=== PATIENT | male | born 1965 | race Caucasian/White ===

== ENCOUNTER 2021-10-27 19:30 | Outpatient (CLI) | payer SELFPAY ==
[2021-10-27 20:05] LABS: D Dimer 0.96 ug/mIFEU (0-0.59)
== END 2021-10-27 19:31 | disposition home or self-care (01) ==
PROVIDERS: Family Provider Family Medicine; Visit Provider Nurse Practitioner
DX: Z01.89 Encounter for other specified special examinations (principal)
CPT/HCPCS: 85378

== ENCOUNTER 2021-10-28 18:39 | Emergency (ER) | payer OTHER, SELFPAY ==
--- NOTE | 2021-10-28 18:41 | ECG_ITS ---
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 Measurements Intervals [place] Rate: 77 P: 58 CO: 195 QRS: 90 QRSD: 105 T: 94 QT: 364 QTc: 414 Interpretive Statements SINUS RHYTHM POSSIBLE ANTERIOR MYOCARDIAL INFARCTION , OF INDETERMINATE AGE [30 ms Q WAVE IN V3/V4, OR R < 0.2 mV IN V4] No previous ECG available for comparison Electronically Signed On 10-28-2021 20:28:35 CDT by Josesito Ward M.D. [id number]
[2021-10-28 18:47] VITALS: BP 125/75; PULSE 73; RESP 14; TEMP 36.6; O2SAT 97; BMI 25.3
[2021-10-28 20:40] LABS: Basophils # 0.1 10^3/uL (0.0-0.1); Basophils % 0.9 %; Eosinophils # 0.2 10^3/uL (0.0-0.8); Eosinophils % 2.8 %; Hematocrit 47.3 % (42.0-52.0); Hemoglobin 15.6 g/dL (11.7-16.6); Lymphocytes # 3.3 10^3/uL (0.8-4.8); Mean Corpuscular Hemoglobin 32.1 pg (28.0-34.0); Mean Corpuscular Volume 97.3 fl (80-94); Monocytes # 0.7 10^3/uL (0.2-0.9); Monocytes % 9.7 %; Neutrophils # 2.63 10^3/uL (1.8-7.7); Neutrophils % 38.5 %; Nucleated Red Blood Cells % 0 %; Platelet Count 200 10^3/cmm (130-400); Red Blood Count 4.86 10^6/uL (4.1-5.3); Red Cell Distribution Width 12.6 % (12.1-15.1); White Blood Count 6.8 10^3/uL (4.0-10.0)
--- NOTE | 2021-10-28 20:41 | ECG_ITS ---
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 Measurements Intervals [place] Rate: 71 P: 43 AL: 214 QRS: 79 QRSD: 97 T: 90 QT: 384 QTc: 418 Interpretive Statements SINUS RHYTHM WITH FIRST DEGREE AV BLOCK POSSIBLE ANTERIOR MYOCARDIAL INFARCTION , PROBABLY OLD [30 ms Q WAVE IN V3/V4, OR R < 0.2 mV IN V4] Compared to ECG 10/28/2021 18:59:30 First degree AV block now present Myocardial infarct finding still present Electronically Signed On 10-28-2021 22:00:36 CDT by Josesito Ward M.D. [id number]
[2021-10-28 20:52] LABS: INR 0.93 (0.8-1.2)
--- NOTE | 2021-10-28 20:54 | CTR_ITS ---
PROCEDURE INFORMATION: Exam: CTA Chest With Contrast Exam date and time: 10/28/2021 9:09 PM Age: 56 years old Clinical indication: Pain and abnormal findings; Abnormal diagnostic tests; Elevated d-dimer; Chest pressure; Patient HX: C/O chest pain with elevated d dimer; Additional info: Cp TECHNIQUE: Imaging protocol: Computed tomographic angiography of the chest with contrast. 3D rendering (Not supervised by radiologist): MIP and/or 3D reconstructed images were created by the technologist. Radiation optimization: All CT scans at this facility use at least one of these dose optimization techniques: automated exposure control; mA and/or kV adjustment per patient size (includes targeted exams where dose is matched to clinical indication); or iterative reconstruction. Contrast material: OMNI 350; Contrast volume: 80 ml; Contrast route: INTRAVENOUS (IV); COMPARISON: CR XR chest 2V* [id number] 10/27/2021 5:45 PM RADIATION DOSE METRICS: Total DLP (mGy-cm): 596.78 FINDINGS: Pulmonary arteries: There is no evidence of filling defects within the pulmonary arterial circulation to suggest pulmonary embolism. Aorta: There is no thoracic aortic aneurysm or dissection. Lungs: 4 mm noncalcified nodule such as on series 7, image number 14 in the right middle lobe. There is also 3 mm noncalcified peripheral nodule image number 31 series 4 in the left upper lobe. For patients at low risk (minimal or absent history of smoking and of other known risk factors), no routine follow-up is indicated. For patients at high risk (history of smoking or of other known risk factors), consider optional CT Chest at 12 months. (Reference: Ranulfo). There is some mild mosaic attenuation posteriorly at the lung bases which could represent gas trapping from small airways disease. There is some mild peripheral ground-glass opacity in both lungs in a dependent distribution. This may represent some mild interstitial edema. Please correlate with clinical findings. Pleural spaces: There are no pleural effusions present. Heart: Unremarkable. No cardiomegaly. No pericardial effusion. Lymph nodes: There is no evidence of lymphadenopathy. Bones/joints: Unremarkable. No acute fracture. Soft tissues: Unremarkable. CT/CT angio chest PE protcl [id number] IMPRESSION: 1. No evidence of pulmonary embolism. 2. Small nonspecific pulmonary nodules. Follow-up according to Fleischner society guidelines is recommended. 3. Question of mild dependent interstitial edema. REFERENCES: Ranulfo H, et al. Guidelines for Management of Incidental Pulmonary Nodules Detected on CT Images: From the Fleischner Society 2017. Radiology. 2017;284(1):228-243.
--- NOTE | 2021-10-28 21:00 | W.ED.CHESTPA ---
HPI - Chest Pain General: Chief Complaint: Chest Pain Stated Complaint: abnormal labs, chest pain Time Seen by Provider: 10/28/21 20:39 Source: patient Mode of arrival: ambulatory Limitations: no limitations History of Present Illness: 56-year-old male who states he has been having chest pain over the last 3 nights. States that worst pains were 2 nights ago he had shortness of breath he had seen Bobo A[facility]as had a D-dimer drawn blood called him tell him that was elevated and he need to come to get a CT angio of his chest. He states his today's pains been improved he has had some intermittent pains denies any pain currently no history of heart disease. Denies any cough or fever. Associated symptoms: Reports dyspnea; Deny abdominal pain, fever(s), nausea or vomiting Review of Systems Const: Denies: fever(s), chills, body aches or change in appetite Eyes: Denies: blurry vision or eye discomfort ENMT: Denies: throat pain or dental pain Card: Reports: chest pain Resp: Reports: dyspnea GI: Denies: abdominal pain, nausea, vomiting or diarrhea : Denies: dysuria Musc: Denies: neck pain or back pain Skin/Breast: Denies: rash Neuro: Denies: headache(s) Psych: Denies: depression Robel/Lymph: Denies: easy bruising All/Imm: Denies: urticaria PFSH ED PFSH: Medical History (Updated 10/28/21 @ 23:36 by Conrad Oshea MD) Hypertension Social History (Updated 10/28/21 @ 21:02 by Conrad Oshea MD) Smoking and tobacco status: current every day smoker Physical Exam Const: COMMON NORMALS: no acute distress, patient oriented x3 and healthy appearing HENMT: COMMON NORMALS: normocephalic and atraumatic HEAD & SCALP: normocephalic and atraumatic Eye: COMMON NORMALS: Equal, round and reactive pupils present and EOMs intact bilaterally PUPIL: Yes Equal, round and reactive pupils present Neck/C-Spine: COMMON NORMALS: full ROM and supple Chest: COMMONS NORMALS: normal inspection of the chest and normal palpation of entire chest wall Resp: COMMON NORMALS: normal respiratory effort, No retractions, No use of accessory muscles and clear to auscultation bilaterally AUSCULTATION: clear to auscultation bilaterally Cardio: COMMON NORMALS: regular rate, regular rhythm and No murmurs present (Cardio) RATE: regular rate RHYTHM: regular rhythm GI: COMMON NORMALS: Normal to inspection, nondistended, normoactive bowel sounds present, Soft to palpation, non-tender and no masses PALPATION: Yes Soft to palpation Extremity: COMMON NORMALS: normal to inspection and full ROM Neuro: COMMON NORMALS: patient oriented x3, moves all extremities and no focal motor deficits Psych: COMMON NORMALS: mental status grossly normal, Normal thought process present and cooperative THOUGHT PROCESS: Normal thought process present Skin: COMMON NORMALS: no rashes or lesions noted and no wounds GENERAL SKIN EXAM: no rashes or lesions noted Course Vital Signs: Vital signs: Vital Signs Temperature 97.9 F 10/28/21 18:47 Pulse Rate 75 10/28/21 23:16 Respiratory Rate 16 10/28/21 23:16 Blood Pressure 111/72 10/28/21 23:16 Pulse Oximetry 95 10/28/21 23:16 MDM - Chest Pain Medical Decision Making Patient presents for chest pain he is mainly concerned with pulmonary embolism as his PCP had sent him here for CT angio. A CT under here was normal I did inform him that his story of his chest pain was concerning his first troponin was 7 5 the second 1 did go down. I did recommended admission to him with the type of pain he was having I informed him I was concerned it could be cardiac. He states that he does not want to stay in the hospital he did agreed for an outpatient stress test but he refused admission we will get him follow-up with cardiology and outpatient stress test he is to return to the ER if he has any worsening pain he understands and agrees to the plan. Lab Data : 10/28/21 20:24 10/28/21 20:24 Radiology Impressions Chest CTA 10/28/21 20:54 IMPRESSION: 1. No evidence of pulmonary embolism. 2. Small nonspecific pulmonary nodules. Follow-up according to Fleischner society guidelines is recommended. 3. Question of mild dependent interstitial edema. REFERENCES: Ranulfo Murphy et al. Guidelines for Management of Incidental Pulmonary Nodules Detected on CT Images: From the Fleischner Society 2017. Radiology. 2017;284(1):228-243. Laboratory Results WBC 6.8 10^3/uL (4.0-10.0) 10/28/21 20: RBC 4.86 10^6/uL (4.1-5.3) 10/28/21 20: Hgb 15.6 g/dL (11.7-16.6) 10/28/21 20: Hct 47.3 % (42.0-52.0) 10/28/21 20: MCV 97.3 fl (80-94) H 10/28/21 20: MCH 32.1 pg (28.0-34.0) 10/28/21: MCHC 33.0 g/dL (30.0-36.0) 10/28/21: RDW 12.6 % (12.1-15.1) 10/28/21: Plt Count 200 10^3/cmm (130-400) 10/28/21 20: MPV 11.0 fL (7.4-10.4) H 10/28/21: Neut % (Auto) 38.5 % 10/28/21: Lymph % (Auto) 48.0 % 10/28/21: [place] % (Auto) 9.7 % 10/28/21: Eos % (Auto) 2.8 % 10/28/21: Baso % (Auto) 0.9 % 10/28/21 Neut # (Auto) 2.63 10^3/uL (1.8-7.7) 10/28/21: Lymph # (Auto) 3.3 10^3/uL (0.8-4.8) 10/28/21: [place] # (Auto) 0.7 10^3/uL (0.2-0.9) 10/28/21: Eos # (Auto) 0.2 10^3/uL (0.0-0.8) 10/28/21: Baso # (Auto) 0.1 10^3/uL (0.0-0.1) 10/28/21: Nucleated RBC % (auto) 0 % 10/28/21: Nucleated RBCs # 0.0 /100WBC 10/28/21: PT 12.80 SECONDS (12.1-14.9) 10/28/21 20:24 INR 0.93 (0.8-1.2) 10/28/21 20:24 Sodium 139 mmol/L (136-145) 10/28/21 20:24 Potassium 4.3 mmol/L (3.5-5.1) 10/28/21 20:24 Chloride 103 mmol/L (98-107) 10/28/21 20:24 Carbon Dioxide 27 mmol/L (22-29) 10/28/21 20:24 Anion Gap 13.3 (5-19) 10/28/21 20:24 BUN 17 mg/dL (6-20) 10/28/21 20:24 Creatinine 1.1 mg/dL (0.7-1.2) 10/28/21 20:24 GFR Calculation 69.5 mL/min (90-130) L 10/28/21 20:24 Glucose 82 mg/dL (65-115) 10/28/21 20:24 Calculated Osmolality 289 mOsm/kg (285-295) 10/28/21 20:24 Calcium 10.0 mg/dL (8.5-10.5) 10/28/21 20:24 Total Bilirubin 0.2 mg/dL (0.15-1.2) 10/28/21 20:24 AST 17 U/L (0-40) 10/28/21 20:24 ALT 17 U/L (0-41) 10/28/21 20:24 Alkaline Phosphatase 78 IU/L (40-130) 10/28/21 20:24 Troponin T Baseline 75 ng/L (0-15) H 10/28/21 20:24 Troponin T 120 Minute 70.52 ng/L (0-15) H 10/28/21 22:42 Delta Troponin T -4.48 ABS# (0-10) L 10/28/21 22:42 Total Protein 7.2 g/dL (6.6-8.7) 10/28/21 20:24 Albumin 4.3 g/dL (3.5-5.2) 10/28/21 20:24 Globulin 2.9 g/dL (1.3-4.6) 10/28/21 20:24 EKG Data EKG 1: I personally reviewed and interpreted this EKG as follows: EKG interpretation date: 10/28/21 EKG interpretation time: 20:54 Interpretation: nasr hr [address] or t wave abnormalities qrs 97 qtc 406 Discharge Plan Discharge Patient Disposition: Home Clinical Impression: Chest pain Discharge Orders: Discharge ED (Routine); Ordered 10/28/21 Ordered By: Conrad Oshea Referrals: Earl Stephenson MD [Physician] - 1-3 days Discharge Diet: Advance as tolerated Discharge Activity: Resume usual activity Patient Instructions: Chest Pain (ED) Coding Level of Care Code 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
[2021-10-28 21:02] LABS: Alanine Aminotransferase 17 U/L (0-41); Albumin Level 4.3 g/dL (3.5-5.2); Alkaline Phosphatase 78 IU/L (40-130); Anion Gap 13.3 (5-19); Aspartate Amino Transferase 17 U/L (0-40); Blood Urea Nitrogen 17 mg/dL (6-20); Carbon Dioxide 27 mmol/L (22-29); Chloride 103 mmol/L (98-107); Globulin 2.9 g/dL (1.3-4.6); Glomerular Filtration Rate 69.5 mL/min (90-130); Glucose 82 mg/dL (65-115); Osmolality Calculated 289 mOsm/kg (285-295); Potassium 4.3 mmol/L (3.5-5.1); Sodium 139 mmol/L (136-145); Total Bilirubin 0.2 mg/dL (0.15-1.2); Total Protein 7.2 g/dL (6.6-8.7)
[2021-10-28 21:06] LABS: Troponin(5th) Baseline 75 ng/L (0-15)
[2021-10-28] MEDS: iohexol 350 mg/mL 100 mL Btl IV (21:16)
[2021-10-28 21:44] VITALS: BP 127/87; PULSE 71; RESP 16; O2SAT 98
[2021-10-28 22:26] VITALS: BP 128/78; PULSE 72; RESP 17; O2SAT 95
[2021-10-28 23:16] VITALS: BP 111/72; PULSE 75; RESP 16; O2SAT 95
[2021-10-28 23:16] LABS: Troponin 5 2HR 70.52 ng/L (0-15)
[2021-10-28 23:26] LABS: Troponin 5 2HR Delta -4.48 ABS# (0-10)
--- NOTE | 2021-10-28 23:49 | PC.NURSE ---
As patient was leaving he states that he did not get the answer he wanted. Pt. was offered admission by physician and refused. Pt. asked for medical record information , I explained that he could get his medical records from the medical record office.
--- NOTE | 2021-10-30 13:44 | DCPLANNER ---
Addendum entered by Graciela Schneider 11/10/21 10:25: Patient had a follow up appointment scheduled with [facility] - patient did attend appointment. Addendum entered by Graciela Schneider 11/02/21 15:03: ER physician wanted an outpatient stress test order for patient. Patient came back to the ER and was admitted and had a heart cath completed. funeral location manager called [facility], spoke with Page Trent a note was put on patients chart stating that ER physician wanted a stress test ordered prior to cath. Addendum entered by Graciela Schneider 11/02/21 14:57: Patient has a follow up appointment scheduled for Thursday November 04, 2021 at 11:00 with INSTRUCTOR ADJUNCT PHARMACY TECHNICIANMay at [facility]. Clinic will contact patient with appointment information. Original Note: funeral location manager had message to schedule a follow up appointment for patient with cardiology. funeral location manager sent patients information to the front office staff at [facility]. Patients information will be printed and reviewed. Clinic will call patient with appointment information.
== END 2021-10-28 23:53 | disposition home or self-care (01) ==
PROVIDERS: Emergency Provider Emergency Medicine
DX: R07.9 Chest pain, unspecified (principal); I10 Essential (primary) hypertension; F17.210 Nicotine dependence, cigarettes, uncomplicated
CPT/HCPCS: 36415; 71275; 80053; 84484; 85025; 85610; 93005; 99285; Q9967

== ENCOUNTER 2021-10-29 10:14 | Inpatient (IN) | payer OTHER, SELFPAY ==
[2021-10-29] VITALS (26 sets, daily range): BP systolic 94–175; BP diastolic 51–101; PULSE 64–80; RESP 14–19; TEMP 36.4–36.9; O2SAT 92–97; BMI 25.3
--- NOTE | 2021-10-29 10:32 | ECG_ITS ---
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 Measurements Intervals [place] Rate: 75 P: 71 OK: 176 QRS: 94 QRSD: 91 T: 89 QT: 360 QTc: 402 Interpretive Statements SINUS RHYTHM BORDERLINE RIGHT AXIS DEVIATION [QRS AXIS > 90] POSSIBLE ANTERIOR MYOCARDIAL INFARCTION , OF INDETERMINATE AGE [30 ms Q WAVE IN V3/V4, OR R < 0.2 mV IN V4] Possible recent lateral wall [place] INTERPRETATION BASED ON A DEFAULT AGE OF 40 YEARS Compared to ECG 10/28/2021 20:54:46 First degree AV block no longer present Myocardial infarct finding still present Electronically Signed On 10-29-2021 20:16:39 CDT by Earl Stephenson M.D. [id number]
--- NOTE | 2021-10-29 10:32 | XRR_ITS ---
PROCEDURE INFORMATION: Exam: XR Chest Exam date and time: 10/29/2021 10:55 AM Age: 56 years old Clinical indication: Pain; Angina pectoris; Additional info: Cp TECHNIQUE: Imaging protocol: Radiologic exam of the chest. Views: 1 view. COMPARISON: CR XR chest 2V* [id number] 10/27/2021 5:45 PM FINDINGS: Lungs: There are normal lung volumes without interstitial or airspace opacities. Pleural spaces: There are no pleural effusions or pneumothorax. Heart/Mediastinum: The heart size is normal. The mediastinal contour is normal. The trachea is in the midline. Bones/joints: No acute abnormalities. XR/XR chest 1V portable [id number] IMPRESSION: No chest radiographic evidence of acute cardiopulmonary disease.
--- NOTE | 2021-10-29 10:49 | W.ED.CHESTPA ---
HPI - Chest Pain General: Chief Complaint: Chest Pain Stated Complaint: cp , possible heart attack Time Seen by Provider: 10/29/21 10:41 History of Present Illness: 56-year-old male presents with chest pain. Patient reports that started around 930 this morning He describes it as a pressure throughout his chest with burning when he takes a deep breath. Patient's was seen last night for similar symptoms had extensive work-up with a negative CTA due to elevated D-dimer. Negative EKG, negative troponins. Patient does have a history of smoking and continues to smoke. He denies any fever, chills, nausea or vomiting. Patient feels he has some radiation to the left arm. Associated symptoms: Deny abdominal pain, fever(s), nausea, palpitations or vomiting Review of Systems Const: Denies: fever(s), chills or fatigue Eyes: Denies: change in vision or blurry vision ENMT: Denies: throat pain or ear or mastoid pain Card: Reports: chest pain; Denies: palpitations, irregular heart rhythm or edema Resp: Reports: pain on inspiration and other (Please see HPI) GI: Denies: abdominal pain, nausea or vomiting : Denies: flank pain, difficulty urinating or dysuria Musc: Denies: neck pain or back pain Skin/Breast: Denies: rash Neuro: Denies: headache(s), numbness in extremities or weakness in extremities PFSH ED PFSH: Medical History (Updated 10/29/21 @ 12:58 by Manjit Alfaro DO) Hypertension Social History (Updated 10/28/21 @ 21:02 by Conrad Oshea MD) Smoking and tobacco status: current every day smoker Physical Exam Const: COMMON NORMALS: no acute distress, patient oriented x3 and no limitations HENMT: COMMON NORMALS: normocephalic and hearing grossly normal bilaterally HEAD & SCALP: normocephalic Eye: COMMON NORMALS: EOMs intact bilaterally and conjunctivae normal CONJUNCTIVA: Yes conjunctivae normal Chest: CHEST: Yes Symmetrical chest wall rise Resp: COMMON NORMALS: normal respiratory effort, No retractions, No use of accessory muscles and clear to auscultation bilaterally AUSCULTATION: clear to auscultation bilaterally Cardio: COMMON NORMALS: regular rate and regular rhythm RATE: regular rate RHYTHM: regular rhythm GI: COMMON NORMALS: Soft to palpation and non-tender INSPECTION: Yes normal to inspection PALPATION: Yes Soft to palpation Extremity: COMMON NORMALS: normal to inspection, full ROM and capillary refill normal Neuro: COMMON NORMALS: patient oriented x3, CN's II-XII intact bilaterally, moves all extremities, no focal motor deficits and no sensory deficits noted Psych: COMMON NORMALS: mental status grossly normal, cooperative and normal affect Skin: COMMON NORMALS: no rashes or lesions noted GENERAL SKIN EXAM: no rashes or lesions noted Course Vital Signs: Vital signs: Vital Signs Temperature 97.8 F 10/29/21 11:09 Pulse Rate 76 10/29/21 12:28 Respiratory Rate 19 H 10/29/21 12:28 Blood Pressure 104/65 10/29/21 12:28 Pulse Oximetry 97 10/29/21 12:28 MDM - Chest Pain Medical Decision Making Patient with troponin still elevated at 72. Patient feels that any type of activity that chest pain would come back. Reviewed notes from his ER stay last night and he was recommended admission for stress test and further evaluation which he declined. Patient feels like he would probably benefit from staying at this time. Discussed diamond with Dr. Harris who graciously excepted patient. Patient is stable upon admission Lab Data : 10/29/21 10:46 10/29/21 11:36 Radiology Impressions Chest X-Ray 10/29/21 10:32 IMPRESSION: No chest radiographic evidence of acute cardiopulmonary disease. Laboratory Results WBC 5.5 10^3/uL (4.0-10.0) 10/29/21 10:46 RBC 4.66 10^6/uL (4.1-5.3) 10/29/21 10:46 Hgb 15.0 g/dL (11.7-16.6) 10/29/21 10:46 Hct 44.3 % (42.0-52.0) 10/29/21 10:46 MCV 95.1 fl (80-94) H 10/29/21 10:46 MCH 32.2 pg (28.0-34.0) 10/29/21 10:46 MCHC 33.9 g/dL (30.0-36.0) 10/29/21 10:46 RDW 12.6 % (12.1-15.1) 10/29/21 10:46 Plt Count 175 10^3/cmm (130-400) 10/29/21 10:46 MPV 10.7 fL (7.4-10.4) H 10/29/21 10:46 Neut % (Auto) 45.5 % 10/29/21 10:46 Lymph % (Auto) 43.9 % 10/29/21 10:46 [place] % (Auto) 8.1 % 10/29/21 10:46 Eos % (Auto) 1.6 % 10/29/21 10:46 Baso % (Auto) 0.7 % 10/29/21 10:46 Neut # (Auto) 2.52 10^3/uL (1.8-7.7) 10/29/21 10:46 Lymph # (Auto) 2.4 10^3/uL (0.8-4.8) 10/29/21 10:46 [place] # (Auto) 0.5 10^3/uL (0.2-0.9) 10/29/21 10:46 Eos # (Auto) 0.1 10^3/uL (0.0-0.8) 10/29/21 10:46 Baso # (Auto) 0.0 10^3/uL (0.0-0.1) 10/29/21 10:46 Nucleated RBC % (auto) 0 % 10/29/21 10:46 Nucleated RBCs # 0.0 /100WBC 10/29/21 10:46 Sodium 133 mmol/L (136-145) L 10/29/21 11:36 Potassium 3.9 mmol/L (3.5-5.1) 10/29/21 11:36 Chloride 99 mmol/L (98-107) 10/29/21 11:36 Carbon Dioxide 25 mmol/L (22-29) 10/29/21 11:36 Anion Gap 12.9 (5-19) 10/29/21 11:36 BUN 15 mg/dL (6-20) 10/29/21 11:36 Creatinine 0.9 mg/dL (0.7-1.2) 10/29/21 11:36 GFR Calculation 87.6 mL/min (90-130) L 10/29/21 11:36 Glucose 92 mg/dL (65-115) 10/29/21 11:36 Calculated Osmolality 276 mOsm/kg (285-295) L 10/29/21 11:36 Calcium 9.4 mg/dL (8.5-10.5) 10/29/21 11:36 Total Bilirubin 0.3 mg/dL (0.15-1.2) 10/29/21 11:36 AST 17 U/L (0-40) 10/29/21 11:36 ALT 16 U/L (0-41) 10/29/21 11:36 Alkaline Phosphatase 73 IU/L (40-130) 10/29/21 11:36 Troponin T Baseline 72 ng/L (0-15) H 10/29/21 11:36 NT-Pro-B Natriuret Pep 542 pg/mL (0-125) H 10/29/21 11:36 Total Protein 7.1 g/dL (6.6-8.7) 10/29/21 11:36 Albumin 4.4 g/dL (3.5-5.2) 10/29/21 11:36 Globulin 2.7 g/dL (1.3-4.6) 10/29/21 11:36 Lipase 19 U/L (13-60) 10/29/21 11:36 SARS-CoV-2 Ag (Rapid) Negative (Negative) 10/29/21 11:41 EKG Data EKG 1: I personally reviewed and interpreted this EKG as follows: EKG interpretation date: 10/29/21 Interpretation: nsr, hr 75, qtc 402, so acute st elevation or changes EKG 2: I personally reviewed and interpreted this EKG as follows: EKG interpretation date: 10/29/21 EKG interpretation time: 12:56 Interpretation: Heart rate 68, QTc 410, NV 203. 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
[2021-10-29] MEDS: ipratropium-albuterol 3 mL Neb INHALATION (11:00)
[2021-10-29 11:02] LABS: Basophils % 0.7 %; Eosinophils # 0.1 10^3/uL (0.0-0.8); Eosinophils % 1.6 %; Hematocrit 44.3 % (42.0-52.0); Lymphocytes # 2.4 10^3/uL (0.8-4.8); Lymphocytes % 43.9 %; Mean Corpuscular HGB Conc 33.9 g/dL (30.0-36.0); Mean Corpuscular Hemoglobin 32.2 pg (28.0-34.0); Mean Corpuscular Volume 95.1 fl (80-94); Mean Platelet Volume 10.7 fL (7.4-10.4); Monocytes # 0.5 10^3/uL (0.2-0.9); Monocytes % 8.1 %; Neutrophils # 2.52 10^3/uL (1.8-7.7); Neutrophils % 45.5 %; Nucleated Red Blood Cells % 0 %; Platelet Count 175 10^3/cmm (130-400); Red Blood Count 4.66 10^6/uL (4.1-5.3); Red Cell Distribution Width 12.6 % (12.1-15.1); White Blood Count 5.5 10^3/uL (4.0-10.0)
[2021-10-29 12:08] LABS: Troponin(5th) Baseline 72 ng/L (0-15)
[2021-10-29 12:22] LABS: Alanine Aminotransferase 16 U/L (0-41); Albumin Level 4.4 g/dL (3.5-5.2); Alkaline Phosphatase 73 IU/L (40-130); Anion Gap 12.9 (5-19); Aspartate Amino Transferase 17 U/L (0-40); Blood Urea Nitrogen 15 mg/dL (6-20); Calcium 9.4 mg/dL (8.5-10.5); Carbon Dioxide 25 mmol/L (22-29); Chloride 99 mmol/L (98-107); Globulin 2.7 g/dL (1.3-4.6); Glomerular Filtration Rate 87.6 mL/min (90-130); Glucose 92 mg/dL (65-115); Lipase 19 U/L (13-60); NT Pro B Type Natriuretic Pept 542 pg/mL (0-125); Osmolality Calculated 276 mOsm/kg (285-295); Potassium 3.9 mmol/L (3.5-5.1); Sodium 133 mmol/L (136-145); Total Bilirubin 0.3 mg/dL (0.15-1.2); Total Protein 7.1 g/dL (6.6-8.7)
[2021-10-29 12:24] LABS: SARS Covid-2 Antigen Negative (Negative)
[2021-10-29] MEDS: aspirin 81 mg Chew Tablet 324 MG PO (12:57)
--- NOTE | 2021-10-29 14:34 | PC.NURSE ---
Med/surg admission vital signs: Blood pressure 112/64 Pulse 64 O2 96 on room air Respirations 16 /minute Temperature 97.9 orally
--- NOTE | 2021-10-29 14:49 | USCV_ITS ---
Jorge Luis Kelly Age: 56 Gender: M : 1965 Exam Date: 10/29/2021 15:33 Ordering Phys: Aaron Harris MD Technologist: Amari Harrington [place] [facility] [place]: chest pain BP: 112 / 64 HR: 59 Rhythm: Sinus Technical Quality: Adequate MEASUREMENTS (Male / Female) Normal Values 2D ECHO LV Diastolic Diameter PLAX 4.7 cm 4.2 - 5.9 / 3.9 - 5.3 cm LV Systolic Diameter PLAX 3.4 cm IVS Diastolic Thickness 0.9 cm 0.6 - 1.0 / 0.6 - 0.9 cm IVS Systolic Thickness 0.9 cm LVPW Diastolic Thickness 1.3 cm 0.6 - 1.0 / 0.6 - 0.9 cm LVPW Systolic Thickness 2.0 cm LVOT Diameter 2.0 cm LV Ejection Fraction 2D Teich 54.1 % LV Ejection Fraction MOD 2C 60.4 % LV Ejection Fraction 2C AL 59.4 % LA Diameter 2.9 cm LA Width 3.1 cm LA Height 4.0 cm RA Width 3.5 cm RA Height 4.3 cm Aorta at Sinotubular Diameter 3.0 cm IVC Diameter 1.2 cm M-MODE Aortic Annulus Diameter 3.2 cm LA Ao Ratio MM 0.9 MV E Point Septal Separation 0.8 cm DOPPLER AV Peak Velocity 112.3 cm/s LVOT Peak Velocity 104.0 cm/s AV Area Cont Eq vti 2.7 cm squared AV Area Cont Eq pk 2.9 cm squared MV Peak Velocity 105.0 cm/s MV Area PHT 5.0 cm squared Mitral E to A Ratio 1.3 MV E' Velocity 44.0 cm/s Mitral E to MV E' Ratio 6.9 Mitral E to LV E' Lateral Ratio 6.3 Mitral E to LV E' Septal Ratio 7.8 TR Peak Velocity 203.4 cm/s TR Peak Gradient 16.5 mmHg TR Mean Velocity 166.2 cm/s TR Mean Gradient 11.6 mmHg TR Velocity Time Integral 61.3 cm Right Atrial Pressure 3.0 mmHg Pulmonary Artery Systolic Pressu 19.5 mmHg RV Acceleration Time 0.1 s RV Ejection Time 0.3 s RV AcT/ET 0.5 FINDINGS Left Ventricle Diffuse hypokinesia of the LV apex with an ejection fraction of 45 to 50%. Has an appearance of apical ballooning Right Ventricle Normal right ventricular size and systolic function. Right Atrium Normal right atrial size. Left Atrium Normal left atrial size. Mitral Valve Thickened mitral valve. Aortic Valve Thickened aortic valve. Tricuspid Valve Trace tricuspid valve regurgitation. Estimated pulmonary artery peak systolic pressure 20 mmHg Pulmonic Valve No gross abnormalities noted Pericardium No pericardial effusion. Aorta Normal aortic annulus size. IVC Normal inferior vena cava. CONCLUSIONS Diffuse hypokinesia of the LV apex with an ejection fraction of 45 to 50%. Has an appearance of apical ballooning. Minimally thickened aortic and mitral valve. Trace tricuspid valve regurgitation. Estimated pulmonary artery peak systolic pressure 20 mmHg. There is no pericardial effusion. There are no intracardiac masses. No similar previous studies are available for comparison Dr Earl Stephenson MD [facility] (Electronically Signed) Final Date: 29 October 2021 17:14 S
--- NOTE | 2021-10-29 14:49 | PM.HP ---
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 Denies any nausea vomiting, palpitation, headache, dizziness lightheadedness, fever , shortness of breath, orthopnea PND, lower extremity swelling. He was in ER yesterday with similar complaint but at that time, he decided to go home, as his at that time his CTA was negative, EKG failed to show any acute ST-T wave changes, 2-hour troponin trend was 75-70 with a delta of negative -4. He was asked to stay last night also for more work-up to rule out possible underlying cardiac etiology and possible stress test. He was worked up for above-mentioned complaints: Pertinent imaging studies: CTA chest negative for PE, ?Small nonspecific pulmonary nodules. EKG: Sinus rhythm, with first-degree AV block and borderline right axis deviation. Pertinent labs: WBC 5.5, H&H: 15/44 , PLT : 175 , serum sodium 133 serum potassium 3.9, BUN/ serum creatinine: 15/0.9 Troponin trend: 72 -117 proBNP:542 2D echocardiogram: Diffuse hypokinesia of the LV apex with an ejection fraction of 45 to 50%.?Has an appearance of apical ballooning. ?Minimally thickened aortic and mitral valve. Trace tricuspid valve regurgitation. Estimated pulmonary artery peak systolic pressure 20 mmHg. ?There is no pericardial effusion. ?There are no intracardiac masses. Review of Systems General: Reports: 10 or more systems reviewed and unremarkable except in HPI and below Const: Denies: fever(s), chills, body aches, change in appetite or diaphoresis Card: Denies: palpitations, edema, swelling of feet/ankles, dyspnea on exertion, orthopnea or leg pain with exertion Resp: Denies: dyspnea, productive cough, wheezing or pain on inspiration GI: Denies: abdominal pain, nausea, vomiting, diarrhea or constipation : Denies: flank pain or difficulty urinating Musc: Denies: back pain, extremity pain or extremity swelling Neuro: Denies: headache(s), difficulty walking or confusion Medications/Allergies Allergies Allergy/AdvReac Type Severity Reaction Status Date / Time No Known Allergies Allergy Verified 10/28/21 18:47 PFSH Acute PFSH: Medical History (Updated 10/29/21 @ 12:58 by Manjit Alfaro DO) Hypertension Social History (Updated 10/28/21 @ 21:02 by Conrad Oshea MD) Smoking and tobacco status: current every day smoker Vitals/I&O/Wt Last Vital Signs Temp 97.8 F 10/29/21 14:09 Pulse 64 10/29/21 14:09 Resp 16 10/29/21 14:09 BP 106/68 10/29/21 14:09 Pulse Ox 96 10/29/21 14:09 Weight last 48 hrs Weight 87.09 kg Physical Exam Const: COMMON NORMALS: patient oriented x3 HENMT: COMMON NORMALS: normocephalic and atraumatic HEAD & SCALP: normocephalic and atraumatic Chest: CHEST: Yes Symmetrical chest wall rise Resp: COMMON NORMALS: clear to auscultation bilaterally EFFORT & INSPECTION: Yes symmetric chest movement AUSCULTATION: clear to auscultation bilaterally Cardio: COMMON NORMALS: regular rate, regular rhythm, S1 normal heart sound present, S2 normal heart sound present, No gallops present (Cardio), No murmurs present (Cardio), No rub (Cardio) and Peripheral pulses 2+ throughout RATE: regular rate RHYTHM: regular rhythm HEART SOUNDS: S1 normal heart sound present and S2 normal heart sound present PERIPHERAL PULSES: Peripheral pulses 2+ throughout GI: COMMON NORMALS: Normal to inspection, nondistended, normoactive bowel sounds present, Soft to palpation, non-tender, No hepatosplenomegaly present and no masses AUSCULTATION: Yes normoactive bowel sounds PALPATION: Yes Soft to palpation and Yes No hepatosplenomegaly present RECTAL EXAM: Yes deferred Extremity: COMMON NORMALS: no clubbing, cyanosis or edema and no pedal edema Neuro: COMMON NORMALS: patient oriented x3 Data : 10/29/21 10:46 10/29/21 11:36 A&P Assessment and plan (1) Chest pain: Status: Acute (2) Elevated troponin: Status: Acute Plan 56 year old male with no significant past medical history except for extensive smoking history more than a pack a day for many years, came in with chief complaint of substernal chest pain 8 out of 10 in severity, with left arm radiation started today while he was driving, relieved with sublingual nitro, patient is having similar ongoing chest pain for the last 3 days, has been accompanied with diaphoresis. Denies any nausea vomiting, palpitation, headache, dizziness lightheadedness, fever , shortness of breath, orthopnea PND, lower extremity swelling. Assessment: NSTEMI Possible Takotsubo cardiomyopathy based on 2D echo findings History of smoking Plan: Follow lipid panel TSH Monitor electrolytes Currently on ACS protocol (aspirin statin, therapeutic anticoagulation, sublingual nitro as needed ) Cardiology on board, for Possible coronary angiogram. N.p.o. after midnight CODE STATUS: Full code DVT prophylaxis: Not needed on therapeutic Lovenox Attestations Medical Necessity Statement*: Patient is in hospital management of NSTEMI. Anticipated length of stay greater than 2 midnights Time Spent in Patient Care: Greater than 35 minutes (>than 50% of time spent in counselling and/or direct pt care on unit). Coding Level of Care Code Acute [employer] Specialist for Chg Fwd Exam Detailed Diagnoses Chest pain R07.9 Elevated troponin R77.8
[2021-10-29 15:02] LABS: Troponin 5 2HR 117.6 ng/L (0-15); Troponin 5 2HR Delta 45.6 ABS# (0-10)
[2021-10-29] MEDS: enoxaparin 100 mg/mL Syringe 90 MG SUBCUT (16:22)
[2021-10-29] MEDS: sodium chloride 0.9% 1,000 ML 50 ML IV (16:24)
--- NOTE | 2021-10-29 16:54 | PC.NURSE ---
pt verbalize to authorize Linsey Noel to give information to per pt. her phone # is [phone].
--- NOTE | 2021-10-29 18:52 | PM.CONSULT ---
Providers/Reason For Consult Consulting Physician/Specialty*: ELLIOT Stephenson MD/cardiology Reason for Consult*: Patient with chest pain/elevated troponin T/abnormal echocardiogram Requesting Physician: Dr. Harris Attending Physician: Aaron Harris MD History of Present Illness History of Present Illness Jorge Luis Kelly is a 56 year old male with no significant past medical history, is admitted to the hospital he through the emergency room bed he presented with complaints of chest pain off and on for the last 3 days. He was found to have elevated troponin T. He had an echocardiogram which revealed diffuse hypokinesia of the LV apex with ejection fraction of 45 to 50%. Cardiology consult is requested for further cardiac evaluation recommendations. 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 The pain was 10/10 in intensity. He had pain across the mid substernal region associate with some shortness of breath and profuse sweating. He took one of the sublingual nitroglycerin from his and waited for few minutes. This pain started easing off and then he went back to bed. The morning as he woke up, he had some soreness in the chest and some mild pain. He decided to go to work for half a day and then went to his primary care provider in the afternoon. He had some blood test done at the primary care provider's office. He was found to have elevated D-dimer. He came to the emergency room yesterday for a CT angiogram of the chest to rule out PE. In the emergency room, he was found to have elevated troponin T in the 70s. A 2-hour repeat troponin T showed a downward trend. The emergency room physician advised for him to be admitted to the hospital for further evaluation management. Apparently the patient refused. 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 On the way, he started having chest pain again. Initially the pain was moderate to severe. He took a total of 2 sublingual nitro which apparently did not relieve the pain. For this reason, he turned around and came back to the emergency room. 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 He continues to have this chest soreness with some pain. At the time of my examination, he is grading the pain as 1-2 over 10. He has no shortness of breath, fever, chills or cough. No other specific complaints. He has no previous history for any coronary artery disease, myocardial infarction or congestive heart failure. He does not go to the physicians normally. History of smoking for the last 30 years. No alcohol abuse or any other substance abuse. His both parents and grandparents are known to have heart problems and myocardial infarction's in their 60s and 70s. Review of Systems Narrative: CONSTITUTIONAL: No fever or chills. EYES: No blurring of vision or other visual disturbances lately. ENT: No hoarseness of voice, auditory disturbances or sore throat. CARDIOVASCULAR: As mentioned above. RESPIRATORY: Has some shortness of breath with activities. GASTROINTESTINAL: No hematemesis or melena. GENITOURINARY: No dysuria or hematuria. INTEGUMENTARY: No skin rashes or history of skin cancer. NEURO: No transient ischemic attacks or amaurosis. PSYCHIATRIC: No history of psychosis or major depression. HEMATOLOGIC: No bleeding disorders or significant anemia. ENDOCRINE: No history of polyuria or polydipsia. MUSCULOSKELETAL: No recent joint pain or swelling. ALLERGY/IMMUNOLOGY: As mentioned above. Medications/Allergies Allergies Allergy/AdvReac Type Severity Reaction Status Date / Time No Known Allergies Allergy Verified 10/28/21 18:47 Current Medications Generic Name Dose Route Start Last Admin Trade Name Freq PRN Reason Stop Dose Admin Enoxaparin Sodium 90 mg 10/29/21 16:00 10/29/21 16:22 Enoxaparin 100 Mg/Ml Syringe 1 mg/kg (90 mg) 90 mg SUBCUT Administration Q12H ROSIO Sodium Chloride 1,000 mls @ 50 mls/hr 10/29/21 14:45 10/29/21 16:24 Sodium Chloride 0.9% IV 50 mls/hr .Q20H ROSIO Administration PFSH Acute PFSH: Medical History Hypertension Social History Smoking and tobacco status: current every day smoker Vitals/I&O/Wt Last Vital Signs Temp 98.4 F 10/29/21 16:00 Pulse 64 10/29/21 16:00 Resp 16 10/29/21 16:00 BP 120/74 10/29/21 16:00 Pulse Ox 94 10/29/21 16:00 Weight last 48 hrs Weight 192 lb Data : 10/29/21 10:46 10/29/21 11:36 Micro: Laboratory Last Values WBC 5.5 10^3/uL (4.0-10.0) 10/29/21 10:46 RBC 4.66 10^6/uL (4.1-5.3) 10/29/21 10:46 Hgb 15.0 g/dL (11.7-16.6) 10/29/21 10:46 Hct 44.3 % (42.0-52.0) 10/29/21 10:46 MCV 95.1 fl (80-94) H 10/29/21 10:46 MCH 32.2 pg (28.0-34.0) 10/29/21 10:46 MCHC 33.9 g/dL (30.0-36.0) 10/29/21 10:46 RDW 12.6 % (12.1-15.1) 10/29/21 10:46 Plt Count 175 10^3/cmm (130-400) 10/29/21 10:46 MPV 10.7 fL (7.4-10.4) H 10/29/21 10:46 Neut % (Auto) 45.5 % 10/29/21 10:46 Lymph % (Auto) 43.9 % 10/29/21 10:46 Faulk % (Auto) 8.1 % 10/29/21 10:46 Eos % (Auto) 1.6 % 10/29/21 10:46 Baso % (Auto) 0.7 % 10/29/21 10:46 Neut # (Auto) 2.52 10^3/uL (1.8-7.7) 10/29/21 10:46 Lymph # (Auto) 2.4 10^3/uL (0.8-4.8) 10/29/21 10:46 Faulk # (Auto) 0.5 10^3/uL (0.2-0.9) 10/29/21 10:46 Eos # (Auto) 0.1 10^3/uL (0.0-0.8) 10/29/21 10:46 Baso # (Auto) 0.0 10^3/uL (0.0-0.1) 10/29/21 10:46 Nucleated RBC % (auto) 0 % 10/29/21 10:46 Nucleated RBCs # 0.0 /100WBC 10/29/21 10:46 Sodium 133 mmol/L (136-145) L 10/29/21 11:36 Potassium 3.9 mmol/L (3.5-5.1) 10/29/21 11:36 Chloride 99 mmol/L (98-107) 10/29/21 11:36 Carbon Dioxide 25 mmol/L (22-29) 10/29/21 11:36 Anion Gap 12.9 (5-19) 10/29/21 11:36 BUN 15 mg/dL (6-20) 10/29/21 11:36 Creatinine 0.9 mg/dL (0.7-1.2) 10/29/21 11:36 GFR Calculation 87.6 mL/min (90-130) L 10/29/21 11:36 Glucose 92 mg/dL (65-115) 10/29/21 11:36 Calculated Osmolality 276 mOsm/kg (285-295) L 10/29/21 11:36 Calcium 9.4 mg/dL (8.5-10.5) 10/29/21 11:36 Total Bilirubin 0.3 mg/dL (0.15-1.2) 10/29/21 11:36 AST 17 U/L (0-40) 10/29/21 11:36 ALT 16 U/L (0-41) 10/29/21 11:36 Alkaline Phosphatase 73 IU/L (40-130) 10/29/21 11:36 Troponin T Baseline 72 ng/L (0-15) H 10/29/21 11:36 Troponin T 120 Minute 117.6 ng/L (0-15) H 10/29/21 14:05 Delta Troponin T 45.6 ABS# (0-10) H* 10/29/21 14:05 NT-Pro-B Natriuret Pep 542 pg/mL (0-125) H 10/29/21 11:36 Total Protein 7.1 g/dL (6.6-8.7) 10/29/21 11:36 Albumin 4.4 g/dL (3.5-5.2) 10/29/21 11:36 Globulin 2.7 g/dL (1.3-4.6) 10/29/21 11:36 Lipase 19 U/L (13-60) 10/29/21 11:36 SARS-CoV-2 Ag (Rapid) Negative (Negative) 10/29/21 11:41 Echo: My impression: Echocardiogram from today 10/29/2021 ?Diffuse hypokinesia of the LV apex with an ejection fraction of ?45 to 50%.? Has an appearance of apical ballooning. ?Minimally thickened aortic and mitral valve. ?Trace tricuspid valve regurgitation. ?Estimated pulmonary artery peak systolic pressure 20 mmHg. ?There is no pericardial effusion. ?There are no intracardiac masses. ?No similar previous studies are available for comparison EKG 1: My Interpretation: No #2 probable progression. Recent lateral wall [place]. Nonspecific T injuries in the inferior leads. EKG computer-generated impression: Chest X-Ray 10/29/21 10:32 IMPRESSION: No chest radiographic evidence of acute cardiopulmonary disease. A&P Assessment and plan (1) Unstable angina pectoris due to coronary arteriosclerosis: Patient's clinical features are consistent with unstable angina. Hemodynamically seems to be stable. His symptoms symptoms are subsiding at this time. I may treat him with a subcu Lovenox, p.o. Plavix, aspirin, statin and beta-chanda. Status: Acute (2) Recent myocardial infarction: The EKG is a history of a recent lateral wall [place]. This needs to be further evaluated. Status: Acute (3) Ischemic cardiomyopathy: The LV ejection fraction was around 45 to 50%. Diffuse hypokinesia of the LV apex was noted. Status: Acute (4) Dyslipidemia: Agree with statin treatment Status: Acute (5) Elevated blood pressure reading: Patient may be started on a low-dose of beta-chanda namely metoprolol 25 mg p.o. twice daily. Status: Acute Plan Based on the patient's clinical progress, further recommendations will be made. In view of the patient's symptoms and the abnormal laboratory findings, for further evaluation of his coronary status, he requires a cardiac catheterization. We may consider doing this sometime tomorrow. My current assessment and the management plans were discussed with the patient and family which they understood well. Consult Attestations Medical Necessity Statement: Patient requires continued hospital stay for close monitoring and further management Coding Level of Care Code Acute [employer] Customer Service for [facility] Fwd History Detailed Exam Detailed Diagnoses Unstable angina pectoris due to coronary arteriosclerosis I25.110 Recent myocardial infarction Dyslipidemia E78.5 Elevated blood pressure reading R03.0 Ischemic cardiomyopathy I25.5
[2021-10-29] MEDS: atorvastatin 40 mg Tablet PO (20:09)
[2021-10-29] MEDS: clopidogrel 300 mg Tablet PO (20:09)
--- NOTE | 2021-10-29 20:19 | PC.NURSE ---
Admit Note Patient admitted to 277-1 from ER via wheelchair. Covering service notified. Patient presents with chest pain. Orders reviewed & will continue to monitor. Patient and/or patient representative oriented to environment, equipment, and informed of the following as found in the admission booklet: patient rights & responsibilities, visitor policy, hand and respiratory hygiene practice. Other education includes: treatment plans, new meds. Patient and/or patient representative verbalizes understanding.
--- NOTE | 2021-10-29 21:11 | PC.NURSE ---
Addendum entered by Maria G Ho RN 10/29/21 22:26: Metoprolol dose held tonight due to most recent BP 94/54. Original Note: Called and spoke with Dr Stephenson regarding parameters for PO Metoprolol dose. The patients BP is 100/61 wth HR in 60-70s and is due for 25mg of metoprolol. Dr Stephenson ordered to increase IV fluids to 75ml/hr and to give metoprolol if SBP is greater than 120. If it does not get above 120 systolic can hold metoprolol dose tonight.
[2021-10-29] MEDS: sodium chloride 0.9% 1,000 ML 75 ML IV (21:16)
[2021-10-30] VITALS (45 sets, daily range): BP systolic 84–176; BP diastolic 44–78; PULSE 54–77; RESP 5–26; TEMP 36.6–37.1; O2SAT 88–97
[2021-10-30] MEDS: enoxaparin 100 mg/mL Syringe 90 MG SUBCUT (04:12)
[2021-10-30 04:38] LABS: Basophils # 0.1 10^3/uL (0.0-0.1); Basophils % 0.8 %; Eosinophils # 0.1 10^3/uL (0.0-0.8); Hematocrit 43.7 % (42.0-52.0); Hemoglobin 14.7 g/dL (11.7-16.6); Lymphocytes # 2.8 10^3/uL (0.8-4.8); Lymphocytes % 43.5 %; Mean Corpuscular HGB Conc 33.6 g/dL (30.0-36.0); Mean Corpuscular Hemoglobin 32.7 pg (28.0-34.0); Mean Corpuscular Volume 97.3 fl (80-94); Mean Platelet Volume 11.2 fL (7.4-10.4); Monocytes # 0.6 10^3/uL (0.2-0.9); Monocytes % 9.1 %; Neutrophils # 2.82 10^3/uL (1.8-7.7); Neutrophils % 44.3 %; Nucleated Red Blood Cells % 0 %; Platelet Count 182 10^3/cmm (130-400); Red Blood Count 4.49 10^6/uL (4.1-5.3); Red Cell Distribution Width 12.9 % (12.1-15.1); White Blood Count 6.4 10^3/uL (4.0-10.0)
[2021-10-30 05:14] LABS: Anion Gap 13.2 (5-19); Blood Urea Nitrogen 16 mg/dL (6-20); Calcium 9.3 mg/dL (8.5-10.5); Carbon Dioxide 24 mmol/L (22-29); Chloride 107 mmol/L (98-107); Chol HDL Ratio 6.73 mg/dL (1.0-5.00); Cholesterol 202 mg/dL (0-200); Glomerular Filtration Rate 87.6 mL/min (90-130); Glucose 107 mg/dL (65-115); HDL Cholesterol 30 mg/dL (60-100); LDL Cholesterol Calculated 139 mg/dL (50-129); LDL HDL Ratio 4.63 RATIO (0.00-3.22); Magnesium 2.1 mg/dL (1.7-2.3); Osmolality Calculated 292 mOsm/kg (285-295); Potassium 4.2 mmol/L (3.5-5.1); Sodium 140 mmol/L (136-145); Thyroid Stimulating Hormone 4.19 uIU/mL (0.27-4.20); Triglycerides 164 mg/dL (0-150)
[2021-10-30] MEDS: sodium chloride 0.9% 1,000 ML 75 ML IV (08:38)
--- NOTE | 2021-10-30 08:39 | P.PN_ITS ---
Subjective Subjective: Patient is feeling better today. He had few episodes of chest pain as he was getting up and going to the bathroom. The pain dissipated as he came back to bed. Vital signs are remaining stable. No fever or chills. No cough. No unusual shortness of breath. Medications: Medication Review Details: Current Medications Acetaminophen (Acetaminophen 325 Mg Tablet) 650 mg PO Q6H PRN PRN Reason: Mild/Mod Pain Or Temp >/= 101 Albuterol Sulfate (Albuterol 8 Gm Mdi) 2 puff INHALATION Q4H.RESPIRATORY PRN PRN Reason: SHORTNESS OF BREATH Aspirin (Aspirin 81 Mg Ec Tablet) 81 mg PO DAILY [facility] Last Admin: 10/30/21 08:42 Dose: 81 mg Documented by: Atorvastatin Calcium (Atorvastatin 40 Mg Tablet) 40 mg PO BEDTIME [facility] Last Admin: 10/29/21 20:09 Dose: 40 mg Documented by: Bisacodyl (Bisacodyl 5 Mg Tablet) 10 mg PO DAILY PRN; Protocol PRN Reason: Constipation (see protocol) Clopidogrel Bisulfate (Clopidogrel 75 Mg Tablet) 75 mg PO DAILY [facility] Last Admin: 10/30/21 08:41 Dose: 75 mg Documented by: Enoxaparin Sodium (Enoxaparin 100 Mg/Ml Syringe) 90 mg 1 mg/kg (90 mg) SUBCUT Q12H [facility] Last Admin: 10/30/21 04:12 Dose: 90 mg Documented by: Sodium Chloride (Sodium Chloride 0.9%) 1,000 mls @ 75 mls/hr IV .[id number] [facility] Last Admin: 10/30/21 08:38 Dose: 75 mls/hr Documented by: Sodium Chloride (Sodium Chloride 0.9%) 1,000 mls @ 50 mls/hr IV .Q20H ONE Stop: 10/31/21 04:39 Metoprolol Tartrate (Metoprolol Tartrate 25 Mg Tablet) 25 mg PO BID@0900,2100 [facility] Last Admin: 10/30/21 08:42 Dose: 25 mg Documented by: Nitroglycerin (Nitroglycerin 0.4 Mg Sublingual Tablet) 0.4 mg SUBLINGUAL Q5M PRN PRN Reason: CHEST PAIN Nitroglycerin (Nitroglycerin 1 Gm/Inch Oint Pkt) 1 inch TOPICAL Q6H [facility] Last Admin: 10/30/21 08:40 Dose: 1 inch Documented by: Ondansetron HCl (Ondansetron 2 Mg/Ml Sdv 2 Ml) 4 mg IVP Q8H PRN PRN Reason: vomiting, or N/V if npo Pantoprazole Sodium (Pantoprazole Dr 40 Mg Tablet) 40 mg PO DAILY ROSIO Last Admin: 10/30/21 08:41 Dose: 40 mg Documented by: Vitals/I&O/Wt Last Vital Signs Temp 98 F 10/30/21 08:00 Pulse 72 10/30/21 08:00 Resp 15 10/30/21 08:00 BP 101/78 10/30/21 08:00 Pulse Ox 96 10/30/21 08:00 10/29/21 10/30/21 10/30/21 22:59 06:59 14:59 Intake Total 1480.000 / 1480.000 Balance 1480.000 / 1480.000 Weight last 48 hrs Weight 192 lb Physical Exam Narrative: GENERAL: The patient is alert and oriented times three. Not in any acute distress. HEENT: No significant pallor, icterus or lymphadenopathy.Oral cavity: There are no mucous membrane lesions. NECK: Trachea appears to be central. No masses noted. No JVD or thyromegaly appreciated. RESPIRATORY: Chest is symmetrical. No intercostals muscle retraction or any accessory muscle activation. There is no chest wall tenderness. Breath sounds are heard bilaterally. No rales or rhonchi heard. No evidence of any consolidation. BREASTS: Deferred. HEART: The heart sounds are normal. No S3 or S4. No significant murmurs. No pericardial rub ABDOMEN: No vessel pulsations or distention. No tenderness. No organomegaly appreciated. Bowel sounds are normally heard. : Deferred. RECTAL: Deferred. LYMPHATIC: No lymphadenopathy noted in the neck. EXTREMITIES: No edema or cyanosis. No clubbing. MUSCULOSKELETAL: No acute joint deformities or swelling SKIN: There are no significant rashes or ecchymosis NEUROPSYCHIATRIC: The patient is alert and oriented x3. Appears to be in a good mood. No tremors or rigidity noted. Data : 10/30/21 04:20 10/30/21 04:20 Other Labs: Laboratory Last Values WBC 6.4 10^3/uL (4.0-10.0) 10/30/21 04:20 RBC 4.49 10^6/uL (4.1-5.3) 10/30/21 04:20 Hgb 14.7 g/dL (11.7-16.6) 10/30/21 04:20 Hct 43.7 % (42.0-52.0) 10/30/21 04:20 MCV 97.3 fl (80-94) H 10/30/21 04:20 MCH 32.7 pg (28.0-34.0) 10/30/21 04:20 MCHC 33.6 g/dL (30.0-36.0) 10/30/21 04:20 RDW 12.9 % (12.1-15.1) 10/30/21 04:20 Plt Count 182 10^3/cmm (130-400) 10/30/21 04:20 MPV 11.2 fL (7.4-10.4) H 10/30/21 04:20 Neut % (Auto) 44.3 % 10/30/21 04:20 Lymph % (Auto) 43.5 % 10/30/21 04:20 Dare % (Auto) 9.1 % 10/30/21 04:20 Eos % (Auto) 2.0 % 10/30/21 04:20 Baso % (Auto) 0.8 % 10/30/21 04:20 Neut # (Auto) 2.82 10^3/uL (1.8-7.7) 10/30/21 04:20 Lymph # (Auto) 2.8 10^3/uL (0.8-4.8) 10/30/21 04:20 Dare # (Auto) 0.6 10^3/uL (0.2-0.9) 10/30/21 04:20 Eos # (Auto) 0.1 10^3/uL (0.0-0.8) 10/30/21 04:20 Baso # (Auto) 0.1 10^3/uL (0.0-0.1) 10/30/21 04:20 Nucleated RBC % (auto) 0 % 10/30/21 04:20 Nucleated RBCs # 0.0 /100WBC 10/30/21 04:20 Sodium 140 mmol/L (136-145) 10/30/21 04:20 Potassium 4.2 mmol/L (3.5-5.1) 10/30/21 04:20 Chloride 107 mmol/L (98-107) 10/30/21 04:20 Carbon Dioxide 24 mmol/L (22-29) 10/30/21 04:20 Anion Gap 13.2 (5-19) 10/30/21 04:20 BUN 16 mg/dL (6-20) 10/30/21 04:20 Creatinine 0.9 mg/dL (0.7-1.2) 10/30/21 04:20 GFR Calculation 87.6 mL/min (90-130) L 10/30/21 04:20 Glucose 107 mg/dL (65-115) 10/30/21 04:20 Calculated Osmolality 292 mOsm/kg (285-295) 10/30/21 04:20 Calcium 9.3 mg/dL (8.5-10.5) 10/30/21 04:20 Magnesium 2.1 mg/dL (1.7-2.3) 10/30/21 04:20 Total Bilirubin 0.3 mg/dL (0.15-1.2) 10/29/21 11:36 AST 17 U/L (0-40) 10/29/21 11:36 ALT 16 U/L (0-41) 10/29/21 11:36 Alkaline Phosphatase 73 IU/L (40-130) 10/29/21 11:36 Troponin T Baseline 72 ng/L (0-15) H 10/29/21 11:36 Troponin T 120 Minute 117.6 ng/L (0-15) H 10/29/21 14:05 Delta Troponin T 45.6 ABS# (0-10) H* 10/29/21 14:05 NT-Pro-B Natriuret Pep 542 pg/mL (0-125) H 10/29/21 11:36 Total Protein 7.1 g/dL (6.6-8.7) 10/29/21 11:36 Albumin 4.4 g/dL (3.5-5.2) 10/29/21 11:36 Globulin 2.7 g/dL (1.3-4.6) 10/29/21 11:36 Triglycerides 164 mg/dL (0-150) H 10/30/21 04:20 Cholesterol 202 mg/dL (0-200) H 10/30/21 04:20 LDL Cholesterol, Calc 139 mg/dL (50-129) H 10/30/21 04:20 HDL Cholesterol 30 mg/dL (60-100) L 10/30/21 04:20 LDL/HDL Ratio 4.63 RATIO (0.00-3.22) H 10/30/21 04:20 Cholesterol/HDL Ratio 6.73 mg/dL (1.0-5.00) H 10/30/21 04:20 Lipase 19 U/L (13-60) 10/29/21 11:36 TSH 4.19 uIU/mL (0.27-4.20) 10/30/21 04:20 SARS-CoV-2 Ag (Rapid) Negative (Negative) 10/29/21 11:41 A&P Assessment and plan (1) Unstable angina pectoris due to coronary arteriosclerosis: Patient's clinical features are consistent with unstable angina. Hemodynami tyshawn seems to be stable. Continues to have intermittent chest pain. In view of his ongoing symptoms, he requires a cardiac catheterization as early as possible. Status: Acute (2) Recent myocardial infarction: The EKG is a history of a recent lateral wall [place]. This needs to be further evaluated. Status: Acute (3) Ischemic cardiomyopathy: The LV ejection fraction was around 45 to 50%. Diffuse hypokinesia of the LV apex was noted. Status: Acute (4) Dyslipidemia: Agree with statin treatment. His LDL level is in the 130s from this morning Status: Acute (5) Elevated blood pressure reading: Currently he is normotensive. Status: Acute Plan I may go ahead and do a troponin T this morning on the blood in the lab. Because of his ongoing symptoms, we will schedule the angiogram as early as possible. The risk of bleeding, hematoma, vascular injury, myocardial infarction, CVA, renal failure and other concomitant complications were ex plained in detail. Patient understood this well and consented to proceed. We may go ahead and schedule this procedure early this afternoon. Based on the angiogram findings, further recommendations will be made. Attestations Medical Necessity Statement*: Patient requires continued hospital stay for close monitoring and further management Coding Level of Care Code Acute [employer] for Chg Fwd History Expanded Problem Focused Exam Detailed Medical Decision Making Moderate Complexity Diagnoses Unstable angina pectoris due to coronary arteriosclerosis I25.110 Recent myocardial infarction Ischemic cardiomyopathy I25.5 Dyslipidemia E78.5 Elevated blood pressure reading R03.0
[2021-10-30] MEDS: nitroglycerin 1 gm/inch oint Pkt 1 INCH TOPICAL (08:40)
[2021-10-30] MEDS: clopidogrel 75 mg Tablet PO (08:41)
[2021-10-30] MEDS: pantoprazole DR 40 mg Tablet PO (08:41)
[2021-10-30] MEDS: metoprolol tartrate 25 mg Tablet PO (08:42)
[2021-10-30] MEDS: aspirin 81 mg EC Tablet PO (08:42)
[2021-10-30 09:21] LABS: Troponin T (5th) Once 260 ng/L (0-15)
--- NOTE | 2021-10-30 11:47 | XACV_ITS ---
Exam Room: [facility] Ht: 185 cm Wt: 87 kg BSA: 2.13 m2 Gender: Male : 1965 Any Known Allergies: No known allergies Exam Priority: Routine Indication(s): - Non-ST elevation SD Procedure(s): Procedure Description: Diagnostic procedure Procedure Description: PCI procedure Procedure Description: Left Heart Catheterization Procedure Description: Drug Eluting Coronary Stent Procedure Description: PTCA Procedure Description: Miscellaneous Procedure Description: ACT Procedure Description: Coronary Angiography Sachin OSORIO; Diagnostic Cath Status: Urgent Diagnostic Findings * Left main is a medium caliber vessel with no significant stenotic lesions. * The left anterior descending artery is a medium caliber vessel which appears to wrap around the LV apex minimally. The proximal LAD was found to have minimal intimal irregularities. The mid LAD was found to have a critical tapering narrowing of 99% towards the origin of the second diagonal branch. The second branch was found to be subtotally occluded. The first diagonal branch is relatively small caliber vessel with no significant stenotic lesions. The distal vessel was found to have no significant stenotic lesions. * The left circumflex artery is a medium caliber nondominant vessel with a minimal intimal regularities. No significant stenotic lesions were noted. * The right coronary artery is a large dominant vessel with an ostial narrowing of around 50%. The mid LAD was found to have diffuse tubular narrowing of around 30 to 40%. The PDA branch also was found to have a segmental narrowing of around 50 to 60% at the mid segment. PCI Status: Urgent PCI Indication: NSTE - ACS Interventional Findings * Procedure detail: We engaged left main artery with XB 3.5 guide catheter. IV heparin was administered to maintain ACT above 250 S. 0.014 run-through guidewire was used to cross the critical LAD stenosis and was put in distal vessel. A second 0.014 run-through guidewire was used to cross into medium to large size diagonal vessel. We used 2.5 x 12 mm noncompliant balloon to predilate diagonal stenosis. This was followed by placement of 2.5 x 22 mm resolute Kishor drug-eluting stent and the diagonal vessel. This lesion was in proximal to mid vessel. However ostium was not treated with a stent. We then predilated the LAD stenosis with 2.5 x 12 mm semicompliant balloon. This was followed by placement of 3.0 x 18 mm resolute Kishor drug-eluting stent from proximal to mid LAD across the diagonal vessel. There was slight pinching of diagonal ostium. Balloon angioplasty was performed with 2.5 x 12 mm noncompliant balloon. At this time final angiogram was performed that showed excellent stent expansion, no residual stenosis and VERONIKA-3 flow. Guidewire and guide catheter were removed. Patient left the Data Analytics Architect in a stable condition.. * Mid Left Anterior Descendin% stenosis treated with a AB TREK 2.50X12 RX BALLOON, and MDT R KISHOR 3.0X18 LARISA. 0% residual stenosis, VERONIKA: 3 flow. * 1st Diagonal: 100% stenosis treated with a AB TREK 2.50X12 RX BALLOON, MDT R KISHOR 2.5X22 LARISA, and AB TREK 2.50X12 RX BALLOON. 0% residual stenosis, VERONIKA: 3 flow. Conclusions 1. This 56-year-old white male with no significant past medical history except for some questionable history of elevated blood pressure and smoking abuse, presented with 3-day history of chest pain. He has been having recurrent episodes of chest pain. His clinical features are consistent with a recent myocardial infarction with postinfarction unstable angina. The echocardiogram revealed diffuse hypokinesis of the LV apex with an ejection fraction of 45 to 50%. In view of his ongoing symptoms ,abnormal EKG and echocardiogram for further evaluation of his coronary status, a cardiac catheterization was recommended. Patient underwent left heart catheterization with left and right coronary angiogram today. The findings are as follows. 2. #1. Normal left main. #2 critical tapering stenosis in the mid LAD of 99% towards the origin of the second diagonal branch. The second diagonal branch was found to be subtotally occluded. #3. Mild to moderate diffuse disease in the right coronary artery as mentioned above. #4. Minimal intimal irregularities in the circumflex artery. #5. LVEDP of 27 mmHg. 3. I reviewed and discussed the cardiac catheterization data with the Dr. Ward. 4. It was thought to be appropriate to consider PCI of the LAD 5. and possible diagonal vessel 6. . 7. Dr. Ward concurred with this plan and took over further management of this patient at this point. 8. S/p successful revascularization of proximal to mid LAD with LARISA x1. S/p successful revascularization of medium to large sized diagonal artery with balloon angioplasty and LARISA x1. 9. Mid Left Anterior Descending was treated with a Balloon, and Drug Eluting Stent. 10. 1st Diagonal was treated with a Balloon, Drug Eluting Stent, and Balloon. Recommendations * Dual antiplatelet therapy for at least 12 months. * High intensity statin therapy. * Aggressive risk factor control. * Outpatient cardiology follow-up in 4 weeks. Interventional RX Recommendation: PCI w/o planned CABG Diagnostic RX Recommendation: PCI w/o planned CABG LV EDP: 27 mmHg Left Ventriculography Findings: * Pelvic gram was not performed because of the limitations on the dye usage. The LVEDP was 27 mmHg. Pressures Phase:Rest AO : 97 / 64 ( 79 ) @ 2:03:00 PM 109 / 69 ( 86 ) @ 2:17:00 PM 109 / 66 ( 86 ) @ 2:17:00 PM 74 / 57 ( 66 ) @ 2:31:00 PM 75 / 55 ( 66 ) @ 2:48:00 PM 79 / 56 ( 68 ) @ 2:53:00 PM 90 / 54 ( 68 ) @ 2:56:00 PM LV : 114 / 3 / 27 @ 2:17:00 PM 116 / 2 / 28 @ 2:17:00 PM Valves Phase:DefaultPhase AV : 7.0 @ 2:03:18 PM AV Mean Gradient: 8.0 @ 2:03:18 PM Clinical Evaluation EBL: 5mL-10mL Procedural Details Admit Source: In Patient. Current Diagnosis : NSTEMI. Procedure Consent Obtained. Pre-Procedure Time Out. Identified patient by full name and date of as verbalized by the patient/guarantor. Does the consent match the physician's order: Yes. Accurate & Complete Informed Consent: Yes. Inpatient/Outpatient History & Physical on Chart: Yes. If H&P is completed, is and addenduem needed: No; If yes, is the addendum complete: N/A. Visualize and Verify Site with Patient/Guarantor: N/A. Relevant Radiology Images available: N/A. The risks, benefits, and alternatives of sedation and/or procedure were discussed by physician. The patient agrees to continue. Procedure started. [facility] Clinical Fraility Score: 3: Managing Well. Data Analytics Architect Indications: New Onset Angina. Chest Pain Symptom Assessment: Typical Angina Symptoms. Correct patient, site and procedure confirmed by cath team. Current diagnosis: Unstable angina. PERRLA. Strong, equal hand interior decorator bilaterally. Lungs clear x 5 lobes. IV Site on Arrival: 20 gauge in the left forearm. IV Fluids: 0.9% NaCl at KVO. 100 mL infused prior to phlebotomist lab assistant. Pre Procedural Pulses: bilateral radial was 3+. Pre Procedural Pulses: bilateral dorsalis pedis was 3+. Oxygen started at 2liters/min via nasal canula. right groin was prepped with chloroprep then draped in the usual sterile fashion. right radial was prepped with chloroprep then draped in the usual sterile fashion. Baseline sample Acquired. HR: 61 BPM. Physician notified. Physician arrived. Physician scrubbed in. Immediate Pre-Procedure Time Out. Correct Patient: Yes; Correct Procedure: Yes; Correct Site: Yes; Correct Patient Position: Yes; Correct Supplies: Yes; Dried Flammable Prep: Yes; Blood Products Available: N/A;. Lidocaine 1% infiltrated to the right radial. Arterial access obtained. A 5 botswanan José catheter in over wire. Multiple views taken of left coronary artery. Catheter redirected to the RCA. Catheter removed over the standard wire. A 5 botswanan JR4 catheter in over wire. Multiple views taken of right coronary artery. Dr Ward arrived to review cine films. Catheter removed over the standard wire. A 5 botswanan Angled Pig catheter in over wire. EDP Sample taken: LV 114/3,27; HR: 58 BPM; SpO2: 99%. Pullback taken: LV 116/2,28; AO 109/69(86); Mean: 8mmHg, Peak to Peak: 7mmHg, SEP: 16sec/min; HR: 57 BPM; SpO2: 99%. Catheter removed over the standard wire. Physician scrubbed out. Patient's family updated. Dr. Ward scrubbed in to perform intervention. 6 botswanan XB 3.5 guide catheter was inserted over the wire. Runthrough guidewire was advanced through the guide catheter to lesion in the mid LAD. 2nd Runthrough guidewire was advanced through the guide catheter to lesion in the diaganol. Inflation number : 1 A AB TREK 2.50X12 RX BALLOON was prepped and advanced across the 1st Diag , then inflated to 8 BRITTANY for 0:14 seconds. Balloon inserted to lesion in the diaganol. Inflation number: 2 The AB TREK 2.50X12 RX BALLOON was reinflated across the 1st Diag, to 8 BRITTANY for 0:10 seconds. Inflation number: 3 The AB TREK 2.50X12 RX BALLOON was reinflated across the 1st Diag, to 8 BRITTANY for 0:12 seconds. Balloon out. Results checked. Stent inserted to lesion in the diaganol. Inflation Number : 4 A MDT R KISHOR 2.5X22 LARISA -Lot Number# [id number] Exp 04/10/2024 was prepped and advanced across the 1st Diag. The stent was deployed at 12 BRITTANY for 0:23 seconds. Stent balloon out over wire. Results checked. Balloon inserted to lesion in the mid LAD. Runthrough wire removed from the diagonal. Inflation number : 1 A AB TREK 2.50X12 RX BALLOON was prepped and advanced across the Mid LAD , then inflated to 12 BRITTANY for 0:08 seconds. Inflation Number : 2 A MDT R KISHOR 3.0X18 LARISA -Lot Number#[id number] Exp 07/07/2024 was prepped and advanced across the Mid LAD. The stent was deployed at 0 BRITTANY for 0:12 seconds. Balloon out. Stent inserted to lesion in the mid LAD. Stent balloon out over wire. Results checked. 2nd Runthrough wire reinserted to the diagonal. Runthrough wire removed from the LAD. Balloon inserted to lesion in the diaganol. Inflation number: 5 The AB TREK 2.50X12 RX BALLOON was reinflated across the 1st Diag, to 12 BRITTANY for 0:17 seconds. Inflation number: 6 The AB TREK 2.50X12 RX BALLOON was reinflated across the 1st Diag, to 12 BRITTANY for 0:13 seconds. Balloon out. Wire out. Results checked. ACT drawn. Results 242 seconds. Therapeutic limits - pre-heparin administration 90-150 seconds and monitoring heparin during a vascular procedure >250 seconds. Guide catheter out. A TR Band was successful obtaining hemostatsis at the Right Radial artery insertion site. Post Procedure: Pulses reassessed and unchanged. PERRLA. Strong, equal hand interior decorator bilaterally. No VTE prophylaxis required. Medication's Wasted: Heparin = 3000 u. Medication's Wasted: Nitro = 50 mg. Medication's Wasted: Other = Neosynephrine 9.9 mg. Total IV fluids: 289 mL. PCI Indication: New Onset Angina. Post-op diagnosis: Obstructive CAD. Complications: none. Estimated blood loss: 5mL-10mL. Responsiveness - Normal response to verbal stimuli; alert and oriented, PERRLA. Airway - Unaffected, no intervention required; spontaneous ventilation. Circulation: W/N/L, pulses unchanged. Nausea/Vomiting: No. Procedure completed. Patient transferred by wheelchair to [facility]. Vital chart was stopped. Access Site Site: Right Radial artery Sheath Size: 6 Fr Hemostasis Method: TR Band Hemostasis Success: Successful Procedure Medications Start: 12:54 PM Stop: 12:54 PM Medication: Versed Amount: 1 mg Route: I.V. Start: 12:54 PM Stop: 12:54 PM Medication: Fentanyl Amount: 50 mcg Route: I.V. Start: 12:56 PM Stop: 12:56 PM Medication: Benadryl Amount: 50 mg Route: I.V. Start: 12:56 PM Stop: 12:56 PM Medication: 0.9% Saline Amount: 75 ml/hr Route: I.V. drip Start: 1:01 PM Stop: 1:01 PM Medication: Verapamil Amount: 5 mg Route: I.A. Start: 1:01 PM Stop: 1:01 PM Medication: 0.9% Saline Amount: 250 ml Route: I.V. bolus Start: 1:26 PM Stop: 1:26 PM Medication: Heparin Amount: 9000 units Route: I.V. Start: 1:28 PM Stop: 1:28 PM Medication: Versed Amount: 1 mg Route: I.V. Start: 1:28 PM Stop: 1:28 PM Medication: Fentanyl Amount: 50 mcg Route: I.V. Start: 1:49 PM Stop: 1:49 PM Medication: Heparin Amount: 2000 units Route: I.V. Start: 1:54 PM Stop: 1:54 PM Medication: Neosynephrine Amount: 100 mcg Route: I.V. Start: 1:59 PM Stop: 1:59 PM Medication: Heparin Amount: 2000 units Route: I.V. I, the attending physician, have reviewed and verified all procedure medications. Yes, all medications given per verbal order History/Risk Factors Hypertension: Yes Dyslipidemia: Yes Peripheral Arterial Disease (PAD): No Myocardial Infarction (SD): No Obesity: No Renal Disease: No Tobacco Use: Current/Recent(w/in 1 year) Prior Interventions PCI: No CABG: No Valve Surgery: No Report Signatures Interventional Workflow Finalized by Josesito Ward MD on 11/08/2021 06:20 PM Diagnostic Workflow Finalized by Dr Earl Stephenson MD [facility] on 10/30/2021 02:25 PM
--- NOTE | 2021-10-30 12:49 | W.PM.OPSUD ---
Surgery/Procedure H&P Update DATE OF PROCEDURE: October 30, 2021 DATE H&P PERFORMED: 10/29/21 H&P UPDATE INFORMATION: I have reviewed H&P completed within last 30 days, I have examined patient prior to procedure and No changes to prior documentation PREOP DIAGNOSIS: NSTEMI PRIMARY INDICATION FOR PROCEDURE: UAP/NSTEMI PLANNED PROCEDURE: [facility] with coronary angio and possible PCI PATIENT REASSESSED PRIOR TO SEDATION, WITH NO CHANGE NOTED: Yes PHYSICAL EXAM: alert, oriented x 3, clear to auscultation bilaterally and regular rate & rhythm AIRWAY EVAL/ANESTHESIA PLAN: normal airway, see other exam findings, ASA II, Monitored Anesthesia, Local Anesthesia, Risks, benefits & alternatives of sedation and/or procedure discussed and Patient agrees to continue as planned
--- NOTE | 2021-10-30 12:55 | PC.NURSE ---
to cardiac lab coordinator via w/c at 1436
[2021-10-30] MEDS: sodium chloride 0.9% 1,000 ML 100 ML IV ×2 (14:10→23:32)
--- NOTE | 2021-10-30 15:56 | PM.PN ---
Subjective Subjective: Patient was seen and examined this morning was complaining of chest pain on exertion. Medications: Medication Review Details: Current Medications Acetaminophen (Acetaminophen 325 Mg Tablet) 650 mg PO Q6H PRN PRN Reason: Mild/Mod Pain Or Temp >/= 101 Albuterol Sulfate (Albuterol 8 Gm Mdi) 2 puff INHALATION Q4H.RESPIRATORY PRN PRN Reason: SHORTNESS OF BREATH Aspirin (Aspirin 81 Mg Ec Tablet) 81 mg PO DAILY [facility] Last Admin: 10/30/21 08:42 Dose: 81 mg Documented by: Atorvastatin Calcium (Atorvastatin 40 Mg Tablet) 40 mg PO BEDTIME [facility] Last Admin: 10/29/21 20:09 Dose: 40 mg Documented by: Bisacodyl (Bisacodyl 5 Mg Tablet) 10 mg PO DAILY PRN; Protocol PRN Reason: Constipation (see protocol) Clopidogrel Bisulfate (Clopidogrel 75 Mg Tablet) 75 mg PO DAILY [facility] Last Admin: 10/30/21 08:41 Dose: 75 mg Documented by: Enoxaparin Sodium (Enoxaparin 100 Mg/Ml Syringe) 90 mg 1 mg/kg (90 mg) SUBCUT Q12H [facility] Last Admin: 10/30/21 04:12 Dose: 90 mg Documented by: Sodium Chloride (Sodium Chloride 0.9%) 1,000 mls @ 75 mls/hr IV .[id number] [facility] Last Admin: 10/30/21 08:38 Dose: 75 mls/hr Documented by: Sodium Chloride (Sodium Chloride 0.9%) 1,000 mls @ 50 mls/hr IV .Q20H ONE Stop: 10/31/21 04:39 Metoprolol Tartrate (Metoprolol Tartrate 25 Mg Tablet) 25 mg PO BID@0900,2100 [facility] Last Admin: 10/30/21 08:42 Dose: 25 mg Documented by: Nitroglycerin (Nitroglycerin 0.4 Mg Sublingual Tablet) 0.4 mg SUBLINGUAL Q5M PRN PRN Reason: CHEST PAIN Nitroglycerin (Nitroglycerin 1 Gm/Inch Oint Pkt) 1 inch TOPICAL Q6H [facility] Last Admin: 10/30/21 08:40 Dose: 1 inch Documented by: Ondansetron HCl (Ondansetron 2 Mg/Ml Sdv 2 Ml) 4 mg IVP Q8H PRN PRN Reason: vomiting, or N/V if npo Pantoprazole Sodium (Pantoprazole Dr 40 Mg Tablet) 40 mg PO DAILY [facility] Last Admin: 10/30/21 08:41 Dose: 40 mg Documented by: Vitals/I&O/Wt Last Vital Signs Temp 97.9 F 10/30/21 12:00 Pulse 62 10/30/21 12:00 Resp 12 10/30/21 12:00 BP 104/58 10/30/21 12:00 Pulse Ox 96 10/30/21 12:00 10/30/21 10/30/21 10/30/21 06:59 14:59 22:59 Intake Total 852.5 / 852.5 Balance 852.5 / 852.5 Weight last 48 hrs Weight 87.09 kg Physical Exam Const: COMMON NORMALS: patient oriented x3 HENMT: COMMON NORMALS: normocephalic and atraumatic HEAD & SCALP: normocephalic and atraumatic Chest: CHEST: Yes Symmetrical chest wall rise Resp: COMMON NORMALS: clear to auscultation bilaterally EFFORT & INSPECTION: Yes symmetric chest movement AUSCULTATION: clear to auscultation bilaterally Cardio: COMMON NORMALS: regular rate, regular rhythm, S1 normal heart sound present, S2 normal heart sound present, No gallops present (Cardio), No murmurs present (Cardio), No rub (Cardio) and Peripheral pulses 2+ throughout RATE: regular rate RHYTHM: regular rhythm HEART SOUNDS: S1 normal heart sound present and S2 normal heart sound present PERIPHERAL PULSES: Peripheral pulses 2+ throughout GI: COMMON NORMALS: Normal to inspection, nondistended, normoactive bowel sounds present, Soft to palpation, non-tender, No hepatosplenomegaly present and no masses AUSCULTATION: Yes normoactive bowel sounds PALPATION: Yes Soft to palpation and Yes No hepatosplenomegaly present RECTAL EXAM: Yes deferred Extremity: COMMON NORMALS: no clubbing, cyanosis or edema and no pedal edema Neuro: COMMON NORMALS: patient oriented x3 Data : 10/30/21 04:20 10/30/21 04:20 A&P Assessment and plan (1) Chest pain: Status: Acute (2) Elevated troponin: Status: Acute Plan 56 year old male with no significant past medical history except for extensive smoking history more than a pack a day for many years, came in with chief complaint of substernal chest pain 8 out of 10 in severity, with left arm radiation started today while he was driving, relieved with sublingual nitro, patient is having similar ongoing chest pain for the last 3 days, has been accompanied with diaphoresis. Denies any nausea vomiting, palpitation, headache, dizziness lightheadedness, fever , shortness of breath, orthopnea PND, lower extremity swelling. Assessment: NSTEMI Possible Takotsubo cardiomyopathy based on 2D echo findings History of smoking Plan: lipid panel:Noted TSH: 4.19 Currently on ACS protocol (aspirin, plavix, statin, therapeutic anticoagulation, nitro patch, beta chanda , sublingual nitro as needed ) S/P PCI TO LAD. Monitor electrolytes Cardiology on board. CODE STATUS: Full code DVT prophylaxis: Not needed on therapeutic Lovenox Attestations Medical Necessity Statement*: Patient needs to be in hospital for the management of NSTEMI. Time Spent in Patient Care: Greater than 35 minutes (>than 50% of time spent in counselling and/or direct pt care on unit). Coding Level of Care Code Acute Welder Gas Automatic for Ramiro Aleman Diagnoses Chest pain R07.9 Elevated troponin R77.8
--- NOTE | 2021-10-30 16:40 | PC.NURSE ---
received from cardiac chemical lab supervisor at 1410 via w/c.report received.pt is drwosy but easily awakened.alert and oriented x 3.denies pain.sr-sb on monitor.right wrist with tr band on and inflated.right hand is warm to touch and with brisk capillary refill.palpable radial pulse noted distal to tr band.no hematoma noted.instructed in activity restrictions s/p radial artery procedure...and instructed to notify staff for any bleeding,pain,sob,cp,numbness..or for any concern at all.pt verb understanding of instructions
--- NOTE | 2021-10-30 18:27 | PC.NURSE ---
tr band slowly deflated and finally removed at 1830.right hand remains warm to touch and with brisk capillary refill.no hematoma noted.palpable radial pulse noted.site dressed with 2x2 gauze and secured with biocclusive drsg.pt instructed in activity restrictions and instructed to notify staff for bleeding,pain,bruising,or for any concerns at all.pt's bp has been soft post cath but map's >65.dr pelayo aware.will hold metoprolol for sbp<110.
[2021-10-30] MEDS: atorvastatin 40 mg Tablet PO (20:28)
[2021-10-31] VITALS (7 sets, daily range): BP systolic 115–121; BP diastolic 71–82; PULSE 59–78; RESP 16–18; TEMP 36.7–36.8; O2SAT 92–97
[2021-10-31 04:48] LABS: Basophils # 0.1 10^3/uL (0.0-0.1); Basophils % 0.8 %; Eosinophils # 0.2 10^3/uL (0.0-0.8); Eosinophils % 2.6 %; Hemoglobin 13.8 g/dL (11.7-16.6); Lymphocytes # 2.6 10^3/uL (0.8-4.8); Lymphocytes % 39.5 %; Mean Corpuscular HGB Conc 32.9 g/dL (30.0-36.0); Mean Corpuscular Volume 97.4 fl (80-94); Mean Platelet Volume 11.4 fL (7.4-10.4); Monocytes # 0.6 10^3/uL (0.2-0.9); Monocytes % 9.3 %; Neutrophils % 47.5 %; Nucleated Red Blood Cells % 0 %; Platelet Count 170 10^3/cmm (130-400); Red Blood Count 4.31 10^6/uL (4.1-5.3); Red Cell Distribution Width 12.7 % (12.1-15.1); White Blood Count 6.5 10^3/uL (4.0-10.0)
[2021-10-31 05:10] LABS: Anion Gap 12.3 (5-19); Blood Urea Nitrogen 14 mg/dL (6-20); Calcium 8.8 mg/dL (8.5-10.5); Carbon Dioxide 26 mmol/L (22-29); Chloride 106 mmol/L (98-107); Glomerular Filtration Rate 87.6 mL/min (90-130); Glucose 97 mg/dL (65-115); Osmolality Calculated 290 mOsm/kg (285-295); Potassium 4.3 mmol/L (3.5-5.1); Sodium 140 mmol/L (136-145)
[2021-10-31] MEDS: aspirin 81 mg EC Tablet PO (08:00)
[2021-10-31] MEDS: clopidogrel 75 mg Tablet PO (08:00)
[2021-10-31] MEDS: pantoprazole DR 40 mg Tablet PO (08:00)
--- NOTE | 2021-10-31 08:00 | ECG_ITS ---
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 Measurements Intervals [place] Rate: 61 P: 61 FL: 220 QRS: 77 QRSD: 96 T: 98 QT: 398 QTc: 402 Interpretive Statements SINUS RHYTHM WITH FIRST DEGREE AV BLOCK Compared to ECG 10/29/2021 10:20:39 Features of anteroseptal MN and recent high lateral wall MN First degree AV block now present Myocardial infarct finding no longer present Electronically Signed On 10-31-2021 21:03:11 CDT by Earl Stephenson M.D. [id number]
[2021-10-31] MEDS: metoprolol tartrate 25 mg Tablet PO (08:02)
--- NOTE | 2021-10-31 09:15 | PM.PN ---
Subjective Subjective: Patient underwent left heart catheterization with a left and right coronary angiogram yesterday. He was found to have critical stenosis of the mid LAD and subtotal occlusion of the second diagonal branch. He underwent a PCI of these lesions by Dr. Ward so far he had an uneventful course. This morning, he is complaining of some dull aching type of pain in the left inframammary region. There is no pleuritic component for this. He described as a nagging ache. Medications: Medication Review Details: Current Medications Acetaminophen (Acetaminophen 325 Mg Tablet) 650 mg PO Q6H PRN PRN Reason: Mild/Mod Pain Or Temp >/= 101 Acetaminophen (Acetaminophen 325 Mg Tablet) 650 mg PO Q6H PRN PRN Reason: MILD PAIN Al Hydrox/Mg Hydrox/Simethicone (Qarq-Fmu-Ciopywkll-Addis 30 Ml Udc) 30 ml PO Q15M PRN PRN Reason: INDIGESTION Albuterol Sulfate (Albuterol 8 Gm Mdi) 2 puff INHALATION Q4H.RESPIRATORY PRN PRN Reason: SHORTNESS OF BREATH Aspirin (Aspirin 81 Mg Ec Tablet) 81 mg PO DAILY [facility] Last Admin: 10/31/21 08:00 Dose: 81 mg Documented by: Atorvastatin Calcium (Atorvastatin 40 Mg Tablet) 40 mg PO BEDTIME [facility] Last Admin: 10/30/21 20:28 Dose: 40 mg Documented by: Atropine Sulfate (Atropine 1 Mg/Ml Sdv 1 Ml) 0.5 mg IVP PRN PRN PRN Reason: Symptomatic bradycardia Bisacodyl (Bisacodyl 5 Mg Tablet) 10 mg PO DAILY PRN; Protocol PRN Reason: Constipation (see protocol) Clopidogrel Bisulfate (Clopidogrel 75 Mg Tablet) 75 mg PO DAILY [facility] Last Admin: 10/31/21 08:00 Dose: 75 mg Documented by: Fentanyl (Fentanyl 50 Mcg/Ml Inj 2ml) 50 mcg IVP PRN PRN PRN Reason: Prior to sheath removal Sodium Chloride (Sodium Chloride 0.9%) 1,000 mls @ 100 mls/hr IV .Q10H [facility] Last Admin: 10/30/21 23:32 Dose: 100 mls/hr Documented by: Magnesium Hydroxide (Magnesium Hydroxide 30 Ml Udc) 30 ml PO DAILY PRN PRN Reason: CONSTIPATION Metoprolol Tartrate (Metoprolol Tartrate 25 Mg Tablet) 25 mg PO BID@0900,2100 [facility] Last Admin: 10/31/21 08:02 Dose: 25 mg Documented by: Naloxone HCl (Naloxone 0.4 Mg/Ml Sdv) 0.1 mg IVP Q2M PRN PRN Reason: RESPIRATORY RATE < 8/MIN Nitroglycerin (Nitroglycerin 0.4 Mg Sublingual Tablet) 0.4 mg SUBLINGUAL Q5M PRN PRN Reason: CHEST PAIN Nitroglycerin (Nitroglycerin 0.4 Mg Sublingual Tablet) 0.4 mg SUBLINGUAL Q5M PRN PRN Reason: CHEST PAIN Ondansetron HCl (Ondansetron 2 Mg/Ml Sdv 2 Ml) 4 mg IVP Q8H PRN PRN Reason: vomiting, or N/V if npo Pantoprazole Sodium (Pantoprazole Dr 40 Mg Tablet) 40 mg PO DAILY [facility] Last Admin: 10/31/21 08:00 Dose: 40 mg Documented by: Temazepam (Temazepam 15 Mg Capsule) 15 mg PO BEDTIME PRN PRN Reason: INSOMNIA Vitals/I&O/Wt Last Vital Signs Temp 98.1 F 10/31/21 08:00 Pulse 61 10/31/21 08:03 Resp 18 10/31/21 08:03 BP 121/82 10/31/21 08:00 Pulse Ox 94 10/31/21 08:03 10/30/21 10/31/21 10/31/21 22:59 06:59 14:59 Intake Total 1760 / 2612.5 936.667 / 3549.167 Balance 1760 / 2612.5 936.667 / 3549.167 Weight last 48 hrs Weight 192 lb Physical Exam Narrative: GENERAL: The patient is alert and oriented times three. Not in any acute distress. HEENT: No significant pallor, icterus or lymphadenopathy.Oral cavity: There are no mucous membrane lesions. NECK: Trachea appears to be central. No masses noted. No JVD or thyromegaly appreciated. RESPIRATORY: Chest is symmetrical. No intercostals muscle retraction or any accessory muscle activation. There is no chest wall tenderness. Breath sounds are heard bilaterally. No rales or rhonchi heard. No evidence of any consolidation. BREASTS: Deferred. HEART: The heart sounds are normal. No S3 or S4. No significant murmurs. No pericardial rub ABDOMEN: No vessel pulsations or distention. No tenderness. No organomegaly appreciated. Bowel sounds are normally heard. : Deferred. RECTAL: Deferred. LYMPHATIC: No lymphadenopathy noted in the neck. EXTREMITIES: No edema or cyanosis. No clubbing. MUSCULOSKELETAL: No acute joint deformities or swelling SKIN: There are no significant rashes or ecchymosis NEUROPSYCHIATRIC: The patient is alert and oriented x3. Appears to be in a good mood. No tremors or rigidity noted. Data : 10/31/21 04:15 10/31/21 04:15 A&P Assessment and plan (1) Chest pain: She is a current chest pain is unexplained. The EKG is unremarkable. Most likely this is musculoskeletal. He is advised to get up and move around and see whether the pain gets any better. If there is no improvement, we may consider doing other tests. Status: Acute (2) Recent myocardial infarction: Patient has EKG features of recent anteroseptal and high lateral ID. He is hemodynamically stable. We will continue on the current medications. Status: Acute (3) Atherosclerotic heart disease of [place] coronary artery with unstable angina pectoris: I as mentioned above. Status: Acute (4) Dyslipidemia: May continue on the current medications. Based on the clinical progress, further recommendations will be made. Status: Acute (5) Elevated blood pressure reading: Currently the blood pressure is normotensive. May continue with the medications. Status: Acute (6) Ischemic cardiomyopathy: Since there is no evidence of any cardiac decompensation, may continue on the current medications. Status: Acute Plan If his symptoms improve, as he gets up and walk around, may not require any further investigations. May continue on the current medications including aspirin, Plavix, statin, beta-chanda and other medications. Attestations Medical Necessity Statement*: Possible discharge home today Coding Level of Care Code Acute Religious Healer for Chg Fwd History Expanded Problem Focused Exam Detailed Medical Decision Making Moderate Complexity Diagnoses Chest pain R07.9 Recent myocardial infarction Atherosclerotic heart disease of [place] coronary artery with unstable angina pectoris I25.110 Dyslipidemia E78.5 Elevated blood pressure reading R03.0 Ischemic cardiomyopathy I25.5
--- NOTE | 2021-10-31 14:17 | PM.DCS ---
Discharge Providers Date of Admission: 10/29/21 12:58 Date of Discharge: October 31, 2021 Attending Provider at Admission: Aaron Harris MD Attending Provider at Discharge: Baldo Agudelo MD Consults: Cardiology: Dr. Stephenson Diagnoses at Discharge Discharge Diagnosis (1) Chest pain: Status: Acute (2) Recent myocardial infarction: Status: Acute (3) Atherosclerotic heart disease of [place] coronary artery with unstable angina pectoris: Status: Acute (4) Dyslipidemia: Status: Acute (5) Elevated blood pressure reading: Status: Acute (6) Ischemic cardiomyopathy: Status: Acute Reason for Visit Reason for Visit: cp , possible heart attack Brief History: History as per HPI: Jorge Luis Kelly is a 56 year old male with no significant past medical history, is admitted to the hospital he through the emergency room bed he presented with complaints of chest pain off and on for the last 3 days.? He was found to have elevated troponin T.? He had an echocardiogram which revealed diffuse hypokinesia of the LV apex with ejection fraction of 45 to 50%.? Cardiology consult is requested for further cardiac evaluation recommendations. 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 The pain was 10/10 in intensity.? He had pain across the mid substernal region associate with some shortness of breath and profuse sweating.? He took one of the sublingual nitroglycerin from his and waited for few minutes.? This pain started easing off and then he went back to bed.? The morning as he woke up, he had some soreness in the chest and some mild pain.? He decided to go to work for half a day and then went to his primary care provider in the afternoon.? He had some blood test done at the primary care provider's office.? He was found to have elevated D-dimer.? He came to the emergency room yesterday for a CT angiogram of the chest to rule out PE.? In the emergency room, he was found to have elevated troponin T in the 70s.? A 2-hour repeat troponin T showed a downward trend.? The emergency room physician advised for him to be admitted to the hospital for further evaluation management.? Apparently the patient refused. This morning, he was on his way for an [employer] republic[employer].? On the way, he started having chest pain again.? Initially the pain was moderate to severe.? He took a total of 2 sublingual nitro which apparently did not relieve the pain.? For this reason, he turned around and came back to the emergency room. According the patient, the pain never completely went away since he had event on speech teacher of Sunday.? He continues to have this chest soreness with some pain.? At the time of my examination, he is grading the pain as 1-2 over 10.? He has no shortness of breath, fever, chills or cough.? No other specific complaints. He has no previous history for any coronary artery disease, myocardial infarction or congestive heart failure.? He does not go to the physicians normally.? History of smoking for the last 30 years.? No alcohol abuse or any other substance abuse.? His both parents and grandparents are known to have heart problems and myocardial infarction's in their 60s and 70s. Hospital Course Hospital Course Patient was admitted to hospital further evaluation and management. He was started on treatment as per ACS protocol. Cardiology was consulted and he underwent angiogram on 10/30. Patient underwent left heart catheterization with a left and right coronary angiogram yesterday.? He was found to have critical stenosis of the mid LAD and subtotal occlusion of the second diagonal branch.? He underwent a PCI of these lesions. Patient's hospitalization was otherwise unremarkable. He has been discharged in hemodynamically stable condition with advised to follow-up with nurse practitioner from cardiology office within next [address] Stephenson from cardiology within next 1 month. Physical Exam Const: COMMON NORMALS: patient oriented x3 HENMT: COMMON NORMALS: normocephalic and atraumatic HEAD & SCALP: normocephalic and atraumatic Chest: CHEST: Yes Symmetrical chest wall rise Resp: COMMON NORMALS: clear to auscultation bilaterally EFFORT & INSPECTION: Yes symmetric chest movement AUSCULTATION: clear to auscultation bilaterally Cardio: COMMON NORMALS: regular rate, regular rhythm, S1 normal heart sound present, S2 normal heart sound present, No gallops present (Cardio), No murmurs present (Cardio), No rub (Cardio) and Peripheral pulses 2+ throughout RATE: regular rate RHYTHM: regular rhythm HEART SOUNDS: S1 normal heart sound present and S2 normal heart sound present PERIPHERAL PULSES: Peripheral pulses 2+ throughout GI: COMMON NORMALS: Normal to inspection, nondistended, normoactive bowel sounds present, Soft to palpation, non-tender, No hepatosplenomegaly present and no masses AUSCULTATION: Yes normoactive bowel sounds PALPATION: Yes Soft to palpation and Yes No hepatosplenomegaly present RECTAL EXAM: Yes deferred Extremity: COMMON NORMALS: no clubbing, cyanosis or edema and no pedal edema Neuro: COMMON NORMALS: patient oriented x3 Discharge Data Studies Completed and Pending Completed Studies During Hospitalization Category Date Time Status XR chest 1V portable [id number] Stat Exams 10/29/21 10:32 Completed CV. echo complete* [id number] Routine Ultrasound 10/29/21 14:49 Completed Pending at discharge Category Date Time Status [employer]ER request for service Routine Exams 10/30/21 11:47 Taken Basic Metabolic Panel [facility] Lab 11/01/21 04:00 Ordered Complete Blood Count w/Auto [facility] Lab 11/01/21 04:00 Ordered Radiology Impressions Chest X-Ray 10/29/21 10:32 IMPRESSION: No chest radiographic evidence of acute cardiopulmonary disease. Laboratory Results WBC 6.5 10^3/uL (4.0-10.0) 10/31/21 04:15 RBC 4.31 10^6/uL (4.1-5.3) 10/31/21 04:15 Hgb 13.8 g/dL (11.7-16.6) 10/31/21 04:15 Hct 42.0 % (42.0-52.0) 10/31/21 04:15 MCV 97.4 fl (80-94) H 10/31/21 04:15 MCH 32.0 pg (28.0-34.0) 10/31/21 04:15 MCHC 32.9 g/dL (30.0-36.0) 10/31/21 04:15 RDW 12.7 % (12.1-15.1) 10/31/21 04:15 Plt Count 170 10^3/cmm (130-400) 10/31/21 04:15 MPV 11.4 fL (7.4-10.4) H 10/31/21 04:15 Neut % (Auto) 47.5 % 10/31/21 04:15 Lymph % (Auto) 39.5 % 10/31/21 04:15 [place]arton % (Auto) 9.3 % 10/31/21 04:15 Eos % (Auto) 2.6 % 10/31/21 04:15 Baso % (Auto) 0.8 % 10/31/21 04:15 Neut # (Auto) 3.10 10^3/uL (1.8-7.7) 10/31/21 04:15 Lymph # (Auto) 2.6 10^3/uL (0.8-4.8) 10/31/21 04:15 [place]arton # (Auto) 0.6 10^3/uL (0.2-0.9) 10/31/21 04:15 Eos # (Auto) 0.2 10^3/uL (0.0-0.8) 10/31/21 04:15 Baso # (Auto) 0.1 10^3/uL (0.0-0.1) 10/31/21 04:15 Nucleated RBC % (auto) 0 % 10/31/21 04:15 Nucleated RBCs # 0.0 /100WBC 10/31/21 04:15 Sodium 140 mmol/L (136-145) 10/31/21 04:15 Potassium 4.3 mmol/L (3.5-5.1) 10/31/21 04:15 Chloride 106 mmol/L (98-107) 10/31/21 04:15 Carbon Dioxide 26 mmol/L (22-29) 10/31/21 04:15 Anion Gap 12.3 (5-19) 10/31/21 04:15 BUN 14 mg/dL (6-20) 10/31/21 04:15 Creatinine 0.9 mg/dL (0.7-1.2) 10/31/21 04:15 GFR Calculation 87.6 mL/min (90-130) L 10/31/21 04:15 Glucose 97 mg/dL (65-115) 10/31/21 04:15 Calculated Osmolality 290 mOsm/kg (285-295) 10/31/21 04:15 Calcium 8.8 mg/dL (8.5-10.5) 10/31/21 04:15 Magnesium 2.1 mg/dL (1.7-2.3) 10/30/21 04:20 Total Bilirubin 0.3 mg/dL (0.15-1.2) 10/29/21 11:36 AST 17 U/L (0-40) 10/29/21 11:36 ALT 16 U/L (0-41) 10/29/21 11:36 Alkaline Phosphatase 73 IU/L (40-130) 10/29/21 11:36 Troponin T Gen 5 ng/L 260 ng/L (0-15) H* 10/30/21 04:33 Troponin T Baseline 72 ng/L (0-15) H 10/29/21 11:36 Troponin T 120 Minute 117.6 ng/L (0-15) H 10/29/21 14:05 Delta Troponin T 45.6 ABS# (0-10) H* 10/29/21 14:05 NT-Pro-B Natriuret Pep 542 pg/mL (0-125) H 10/29/21 11:36 Total Protein 7.1 g/dL (6.6-8.7) 10/29/21 11:36 Albumin 4.4 g/dL (3.5-5.2) 10/29/21 11:36 Globulin 2.7 g/dL (1.3-4.6) 10/29/21 11:36 Triglycerides 164 mg/dL (0-150) H 10/30/21 04:20 Cholesterol 202 mg/dL (0-200) H 10/30/21 04:20 LDL Cholesterol, Calc 139 mg/dL (50-129) H 10/30/21 04:20 HDL Cholesterol 30 mg/dL (60-100) L 10/30/21 04:20 LDL/HDL Ratio 4.63 RATIO (0.00-3.22) H 10/30/21 04:20 Cholesterol/HDL Ratio 6.73 mg/dL (1.0-5.00) H 10/30/21 04:20 Lipase 19 U/L (13-60) 10/29/21 11:36 TSH 4.19 uIU/mL (0.27-4.20) 10/30/21 04:20 SARS-CoV-2 Ag (Rapid) Negative (Negative) 10/29/21 11:41 Vitals Last Vital Signs Temp 98.1 F 10/31/21 13:15 Pulse 59 L 10/31/21 13:15 Resp 18 10/31/21 13:15 BP 115/71 10/31/21 13:15 Pulse Ox 95 10/31/21 13:15 Discharge Plan Discharge Patient Disposition: Home Condition: Stable Prescriptions: New atorvastatin 40 mg Tablet 80 mg PO BEDTIME 30 Days Qty: 60 0RF clopidogrel 75 mg Tablet 75 mg PO DAILY Qty: 30 0RF aspirin 81 mg Tablet,Delayed Release (Dr/Ec) 81 mg PO DAILY Qty: 30 0RF metoprolol tartrate 25 mg Tablet 25 mg PO BID@0900,2100 Qty: 60 0RF Continued lisinopril 20 mg Tablet 20 mg PO DAILY 0RF nitroglycerin 0.3 mg Tablet, Sublingual 0.3 mg SUBLINGUAL Q5M PRN (Reason: Chest Pain) 0RF Rx Instructions: do not exceed 3 doses per episode Discharge Orders: Discharge Order (Routine); Ordered 10/31/21 Ordered By: Baldo Agudelo Referrals: Earl Stephenson MD [Physician] - 1 month May Weaver FNP [Nurse Practitioner] - 1 week Discharge Diet: Cardiac Discharge Activity: Resume usual activity and Increase activity as tolerated Patient Instructions: Metoprolol (By mouth), Clopidogrel (By mouth), How to Stop Smoking (DC), Acute Coronary Syndrome (DC), Coronary Intravascular Stent Placement (DC), Chest Pain Stoplight, Post Angiogram Home Care Instructions Activity Restrictions/Additional Instructions: Please follow-up with Dr. Stephenson within next 1 month, nurse practitioner from cardiology office/May Weaver in next 1 week. Please make sure he continue take medications as prescribed. Please try to limit your salt intake. Please try to abstain from smoking and alcohol. Discharge Attestations Time Spent in Discharge Care*: greater than 30 min Specific Discharge Activities: educating patient, educating and/or supporting family/caregiver, discussing with pcp/other providers, discussing with rn case management/social workers/dc planners, documenting/other paperwork and evaluating patient/reviewing data Time Spent in Smoking Cessation: more than 10 minutes Status at Discharge: Cognitive status at discharge: cognitively intact, Behavioral status at discharge: cooperative, Functional status at discharge: independent ambulation, Overall status at discharge: patient is back to baseline Quality Metrics Clinical Quality Measures [ Acute Myocardial Infaction { Clinical Trial Participant: No; Contraindication to aspirin: None; Aspirin prescribed; Contraindication to statin: None; Statin prescribed; Contraindication to PCI: None; PCI performed; Contraindication to Fibrinolytics: None; fibrinolytics given}] Coding Level of Care Code Acute g FW DC note Diagnoses Chest pain R07.9 Recent myocardial infarction Atherosclerotic heart disease of [place] coronary artery with unstable angina pectoris I25.110 Dyslipidemia E78.5 Elevated blood pressure reading R03.0 Ischemic cardiomyopathy I25.5
== END 2021-10-31 14:20 | disposition home or self-care (01) | DRG 247 ==
LOC: ER 12:58 → MEDSURG 10-30 09:51
PROVIDERS: Internal Medicine; Internal Medicine Cardiovascular Disease; Registered Nurse; Admitting Provider Internal Medicine; Emergency Provider Student in an Organized Health Care Education/Training Program; Visit Provider Student in an Organized Health Care Education/Training Program
PROC: 027034Z Dilation of Coronary Artery, One Artery with Drug-eluting Intraluminal Device, Percutaneous Approach (ICD-10-PCS; 2021-10-30 13:00)
DX: I25.110 Atherosclerotic heart disease of native coronary artery with unstable angina pectoris (principal); I25.2 Old myocardial infarction; F17.200 Nicotine dependence, unspecified, uncomplicated; I10 Essential (primary) hypertension; Z82.49 Family history of ischemic heart disease and other diseases of the circulatory system; I25.5 Ischemic cardiomyopathy; E78.5 Hyperlipidemia, unspecified
CPT/HCPCS: 36415; 71045; 80048; 80053; 80061; 83690; 83735; 83880; 84443; 84484; 85025; 85347; 87426; 93005; 93306; 93452; 93458; 94640; 94760; 96360; 96372; 99152; 99153; 99285; C1725; C1769; C1874; C1887; C1894; C9600; J1200; J1644; J1650; J2250; J2370; J3010; J3490; J7030; Q9967

== ENCOUNTER → 2021-11-04 12:07 | Outpatient (BNVA) | payer OTHER, SELFPAY | PROVIDERS: PCP Physician Assistant; Visit Provider Nurse Practitioner Family | DX: I25.110 Atherosclerotic heart disease of native coronary artery with unstable angina pectoris (principal); I25.5 Ischemic cardiomyopathy | CPT/HCPCS: 36415; 80048 ==

== ENCOUNTER 2022-03-24 10:00 | Outpatient (CLI) | payer OTHER, SELFPAY ==
--- NOTE | 2022-03-24 13:45 | USCV_ITS ---
Jorge Luis Kelly Age: 56 Gender: M : 1965 Exam Date: 03/24/2022 10:19 Ordering Phys: May Weaver Technologist: Kinsey Cruz Exam Location: [facility] [place] Indication: Post TN fatigue BP: / HR: 71 Rhythm: Sinus Technical Quality: Adequate MEASUREMENTS (Male / Female) Normal Values 2D ECHO LV Diastolic Diameter PLAX 4.7 cm 4.2 - 5.9 / 3.9 - 5.3 cm LV Systolic Diameter PLAX 2.6 cm LV Chamber Size 4.1 cm IVS Diastolic Thickness 1.1 cm 0.6 - 1.0 / 0.6 - 0.9 cm IVS Systolic Thickness 1.4 cm LVPW Diastolic Thickness 1.0 cm 0.6 - 1.0 / 0.6 - 0.9 cm LVPW Systolic Thickness 1.5 cm RV Chamber Size 3.5 cm LVOT Diameter 2.0 cm LV Ejection Fraction 2D Teich 74.9 % LA Diameter 2.8 cm LA Width 2.8 cm LA Height 2.8 cm RA Width 3.7 cm RA Height 3.0 cm Aorta at Sinotubular Diameter 3.2 cm IVC Diameter 0.9 cm M-MODE Aortic Annulus Diameter 4.0 cm LA Ao Ratio MM 0.9 MV E Point Septal Separation 0.4 cm FINDINGS Left Ventricle Normal left ventricular size and systolic function, EF 55%, visual. No regional wall motion abnormalities. Right Ventricle Normal RV size ejection fraction. Right Atrium Possibly of normal size Left Atrium Possibly of normal size Mitral Valve No gross abnormalities noted Aortic Valve No gross abnormalities noted. Tricuspid Valve No gross abnormalities noted Pulmonic Valve No gross abnormalities noted Pericardium Normal pericardium without effusion. Aorta Normal ascending aorta dimension. IVC The inferior vena cava appears normal. CONCLUSIONS Normal left ventricular size and systolic function, EF 55% (visual). No regional wall motion abnormalities. Normal chamber sizes. No gross valvular abnormalities. There is no pericardial effusion. There are no intracardiac masses. Compared to the study from 10/29/2021, there is significant improvement in the LV ejection fraction. Dr Earl Stephenson MD [facility] (Electronically Signed) Final Date: 24 March 2022 21:34 S
== END 2022-03-24 10:01 | disposition home or self-care (01) ==
PROVIDERS: PCP Physician Assistant; Visit Provider Nurse Practitioner Family
DX: I25.118 Atherosclerotic heart disease of native coronary artery with other forms of angina pectoris (principal); R53.83 Other fatigue
CPT/HCPCS: 93308

== ENCOUNTER 2022-12-21 12:40 | Outpatient (CLI) | payer SELFPAY ==
[2022-12-21 13:49] LABS: D Dimer 0.47 ug/mLFEU (0-0.59)
== END 2022-12-21 12:41 | disposition home or self-care (01) ==
LOC: LAB 12:43
PROVIDERS: PCP Physician Assistant; Visit Provider Family Medicine
DX: R06.09 Other forms of dyspnea (principal)
CPT/HCPCS: 85378

== ENCOUNTER 2023-08-01 13:11 | Emergency (ER) | payer SELFPAY ==
--- NOTE | 2023-08-01 13:17 | ECG_ITS ---
[facility] Test Date: 2023-08-01 Pat Name: Jorge Luis Kelly Department: Room: Gender: Male [place] [employer]: : 1965 Requested By: Zackery Vargas Order Number: [id number] [place] MD: Earl Stephenson M.D. Measurements Intervals [place] Rate: 72 P: 33 PA: 182 QRS: 71 QRSD: 89 T: 57 QT: 363 QTc: 398 Interpretive Statements SINUS RHYTHM POSSIBLE RIGHT VENTRICULAR CONDUCTION DELAY [RSR (QR) IN V1/V2] Compared to ECG 10/31/2021 08:04:25 First degree AV block no longer present Electronically Signed On 08-01-2023 18:34:08 CDT by Earl Stephenson M.D. [id number] f
[2023-08-01 13:18] VITALS: BP 150/96; PULSE 77; RESP 16; TEMP 36.6; O2SAT 99
--- NOTE | 2023-08-01 14:13 | XRR_ITS ---
PROCEDURE INFORMATION: Exam: XR Chest Exam date and time: 08/01/2023 2:25 PM Age: 58 years old Clinical indication: Cardiovascular condition or disease; Congestive heart failure (chf); Other: Not specified; Patient HX: High BP TECHNIQUE: Imaging protocol: Radiologic exam of the chest. Views: 1 view. COMPARISON: CR XR chest 2V* [id number] 12/21/2022 12:47 PM FINDINGS: Lungs: Unremarkable. No consolidation or mass. Pleural spaces: Unremarkable. No pleural effusion. No pneumothorax. Heart/Mediastinum: Unremarkable. No cardiomegaly. Bones/joints: Unremarkable. XR/XR chest 1V portable [id number] IMPRESSION: No acute findings.
[2023-08-01 15:04] VITALS: BP 151/96; PULSE 68; RESP 18; O2SAT 98
--- NOTE | 2023-08-01 15:07 | ED_ITS ---
HPI - Recheck/Abnormal Lab/Rx 2 General: Chief Complaint: Recheck/Abnormal Lab/Rx Stated Complaint: dr parker, high bp Time Seen by Provider: 08/01/23 15:06 History of Present Illness: 58-year-old male comes in today after be ing referred from the primary care office for concerns of chest discomfort. Patient reports that he went to his primary care office for refills on his atorvastatin. Patient reports that he has noticed some increased discomfort when he takes a deep breath in his chest. Patient states last time this occurred he had had a heart attack. Patient at this time only takes baby aspirin daily along with his atorvastatin. Patient takes no routine blood pressure medicine. At the primary care office it was noted patient had elevated blood pressure at 170 systolic. Patient reports no radiation of pain. Patient reports that his discomfort is when he takes a deep breath in he has a cool sensation in his chest. Patient is a chronic nicotine user. Review of Systems 2 General: Reports: 10 or more systems reviewed and unremarkable except in HPI and below Card: Reports: chest pain PFSH ED 2 PFSH: Medical History Dyslipidemia Elevated blood pressure reading Hypertension Unstable angina pectoris due to coronary arteriosclerosis Family History Father CAD (coronary artery disease) Diabetes Mother CAD (coronary artery disease) Family/Other CAD (coronary artery disease) Diabetes Grandmother CAD (coronary artery disease) Dementia Sister Chronic kidney disease (CKD) Denies family history of Clotting disorder Suicide Anesthesia complication Bleeding disorder Lung disease Cancer Stroke Social History Smoking and tobacco/nicotine status: current every day tobacco/nicotine user Alcohol intake: current Alcohol intake frequency: holidays/special occasions only Substance/Drug Use: never Physical Exam 2 Const: COMMON NORMALS: alert HENMT: COMMON NORMALS: normocephalic HEAD & SCALP: normocephalic Neck/C-Spine: COMMON NORMALS: full ROM Resp: COMMON NORMALS: normal respiratory effort and clear to auscultation bilaterally AUSCULTATION: clear to auscultation bilaterally Cardio: COMMON NORMALS: regular rate RATE: regular rate GI: COMMON NORMALS: non-tender : COMMON NORMALS: Yes no CVA tenderness BLADDER/KIDNEY EXAM: Yes no CVA tenderness Back/Pelvis: COMMON NORMALS: no CVA tenderness Extremity: COMMON NORMALS: full ROM Neuro: SENSORIUM/ORIENTATION: Yes alert Skin: COMMON NORMALS: turgor normal GENERAL SKIN EXAM: turgor normal Course 2 Vital Signs: Vital signs: Vital Signs Temperature 97.9 F 08/01/23 13:18 Pulse Rate 68 08/01/23 15:04 Respiratory Rate 18 08/01/23 15:04 Blood Pressure 151/96 08/01/23 15:04 Pulse Oximetry 98 08/01/23 15:04 Oxygen Delivery Me thod Room Air 08/01/23 15:04 MDM - Recheck/Abnormal Lab/Rx Medical Decision Making Patient comes in for evaluation to rule out coronary event/ACS. On exam patient appears nontoxic. Skin is warm and dry. Patient appears in no pain. No edema is noted in extremity. Abdomen soft nontender. Vital signs are normal except for blood pressure of 150/96. Differential diagnosis includes uncontrolled hypertension, CHF, ACS, anxiety, COPD. Chest x-ray was normal. CBC CMP was unremarkable. Troponin was less than 6. Symptoms that started this morning and had no increase in pain or discomfort. EKG showed no changes at 2 hours. Patient was discharged to home with recommendations for follow-up with cardiology for further evaluation and consideration of stress testing. Patient agreed to plan. Lab Data 08/01/23 15:09 08/01/23 15:09 Radiology Impressions Chest X-Ray 08/01/23 14:13 IMPRESSION: No acute findings. Laboratory Results WBC 4.86 10^3/uL (3.29-11.43) 08/01/23 15:09 RBC 4.70 10^6/uL (3.85-5.65) 08/01/23 15:09 Hgb 15.20 g/dL (11.27-16.99) 08/01/23 15:09 Hct 44.6 % (37-53) 08/01/23 15:09 MCV 94.9 fl (82-101) 08/01/23 15:09 MCH 32.3 pg (27-33) 08/01/23 15:09 MCHC 34.1 g/dL (30-55) 08/01/23 15:09 RDW 12.8 % (12.1-15.1) 08/01/23 15:09 Plt Count 159 10^3/cmm (157-399) 08/01/23 15:09 MPV 10.5 fL (7.4-10.4) H 08/01/23 15:09 Neut % (Auto) 34.2 % 08/01/23 15:09 Lymph % (Auto) 51.6 % 08/01/23 15:09 Barber % (Auto) 11.1 % 08/01/23 15:09 Eos % (Auto) 2.1 % 08/01/23 15:09 Baso % (Auto) 0.8 % 08/01/23 15:09 Neut # (Auto) 1.66 10^3/uL (1.8-7.7) L 08/01/23 15:09 Lymph # (Auto) 2.5 10^3/uL (0.8-4.8) 08/01/23 15:09 Barber # (Auto) 0.5 10^3/uL (0.2-0.9) 08/01/23 15:09 Eos # (Auto) 0.1 10^3/uL (0.0-0.8) 08/01/23 15:09 Baso # (Auto) 0.0 10^3/uL (0.0-0.1) 08/01/23 15:09 Nucleated RBC % (auto) 0 % 08/01/23 15:09 Nucleated RBCs # 0.0 /100WBC 08/01/23 15:09 Sodium 140 mmol/L (136-145) 08/01/23 15:09 Potassium 4.2 mmol/L (3.5-5.1) 08/01/23 15:09 Chloride 105 mmol/L (98-107) 08/01/23 15:09 Carbon Dioxide 25 mmol/L (22-29) 08/01/23 15:09 Anion Gap 14.2 (5-19) 08/01/23 15:09 BUN 13 mg/dL (6-20) 08/01/23 15:09 Creatinine 1.0 mg/dL (0.7-1.2) 08/01/23 15:09 GFR Calculation 77.0 mL/min (90-130) L 08/01/23 15:09 Glucose 78 mg/dL (65-115) 08/01/23 15:09 Calculated Osmolality 289 mOsm/kg (285-295) 08/01/23 15:09 Calcium 9.5 mg/dL (8.5-10.5) 08/01/23 15:09 Total Bilirubin 0.3 mg/dL (0.15-1.2) 08/01/23 15:09 AST 18 U/L (0-40) 08/01/23 15:09 ALT 16 U/L (0-41) 08/01/23 15:09 Alkaline Phosphatase 75 U/L (40-130) 08/01/23 15:09 Troponin T Baseline < 6 ng/L (0-15) 08/01/23 15:09 Total Protein 7.5 g/dL (6.6-8.7) 08/01/23 15:09 Albumin 4.0 g/dL (3.5-5.2) 08/01/23 15:09 Globulin 3.5 g/dL (1.3-4.6) 08/01/23 15:09 All radiology interpretation(s) finalized by discharge EKG Data EKG 1: I personally reviewed and interpreted this EKG as follows: EKG interpretation date: 08/01/23 EKG interpretation time: 13:20 Prior EKG tracings: not available for review Interpretation: EKG shows a sinus rhythm with a regular rate at [address] elevation or ectopy is noted. Prior examination was not available for immediate review. Computer generated interpretation: Sinus rhythm, possible right ventricular conduction delay, compared to EKG from 10/31/2021 first-degree AV block no longer present. Discharge Plan Discharge Patient Disposition: Home Clinical Impression: Hypertension Qualifiers: Hypertension type: unspecified Qualified Code(s): I10 - Essential (primary) hypertension Condition: Stable Prescriptions: No Action lisinopril 5 mg tablet 5 mg PO DAILY Qty: 90 3RF atorvastatin 40 mg tablet 80 mg PO BEDTIME Qty: 180 3RF clopidogrel 75 mg tablet 75 mg PO DAILY Qty: 60 3RF aspirin 81 mg tablet,delayed release (DR/EC) 81 mg PO DAILY Qty: 90 3RF isosorbide mononitrate 30 mg tablet extended release 24 hr 30 mg PO DAILY Qty: 30 6RF Rx Instructions: take 1/2 in the AM, 1/2 at bedtime until headache improves, then 1 tab daily nitroglycerin 0.3 mg Tablet, Sublingual 0.3 mg SUBLINGUAL Q5M PRN (Reason: Chest Pain) Rx Instructions: do not exceed 3 doses per episode Discharge Orders: Discharge ED (Routine); Ordered 08/01/23 Ordered By: Jorge Luis Barriga Referrals: Lorelei Hager PA [Primary Care Provider] - Discharge Diet: Usual diet Discharge Activity: Increase activity as tolerated Patient Instructions: Chest Pain (ED) Activity Restrictions/Additional Instructions: Contact primary care office for refills of medication. Drink plenty of water and fluids. Case management will contact you regarding follow-up with cardiology for further evaluation of your heart and probable stress test. Coding Level of Care Code ED Machine Loader for Ramiro Aleman
--- NOTE | 2023-08-01 15:11 | ECG_ITS ---
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 Measurements Intervals [place] Rate: 66 P: 27 AL: 200 QRS: 67 QRSD: 100 T: 49 QT: 375 QTc: 394 Interpretive Statements SINUS RHYTHM INCOMPLETE RIGHT BUNDLE BRANCH BLOCK [90+ ms QRS DURATION, TERMINAL R IN V1/V2, 40+ ms S IN I/aVL/V4/V5/V6] Compared to ECG 08/01/2023 13:17:12 Incomplete right bundle-branch block now present Electronically Signed On 08-01-2023 18:34:58 CDT by Earl Stephenson M.D. [email or web address]
[2023-08-01 15:23] LABS: Basophils % 0.8 %; Eosinophils # 0.1 10^3/uL (0.0-0.8); Eosinophils % 2.1 %; Hematocrit 44.6 % (37-53); Lymphocytes # 2.5 10^3/uL (0.8-4.8); Lymphocytes % 51.6 %; Mean Corpuscular HGB Conc 34.1 g/dL (30-55); Mean Corpuscular Hemoglobin 32.3 pg (27-33); Mean Corpuscular Volume 94.9 fl (82-101); Mean Platelet Volume 10.5 fL (7.4-10.4); Monocytes # 0.5 10^3/uL (0.2-0.9); Monocytes % 11.1 %; Neutrophils # 1.66 10^3/uL (1.8-7.7); Neutrophils % 34.2 %; Nucleated Red Blood Cells % 0 %; Platelet Count 159 10^3/cmm (157-399); Red Cell Distribution Width 12.8 % (12.1-15.1); White Blood Count 4.86 10^3/uL (3.29-11.43)
[2023-08-01 15:37] LABS: Alanine Aminotransferase 16 U/L (0-41); Alkaline Phosphatase 75 U/L (40-130); Anion Gap 14.2 (5-19); Aspartate Amino Transferase 18 U/L (0-40); Blood Urea Nitrogen 13 mg/dL (6-20); Calcium 9.5 mg/dL (8.5-10.5); Carbon Dioxide 25 mmol/L (22-29); Chloride 105 mmol/L (98-107); Globulin 3.5 g/dL (1.3-4.6); Glucose 78 mg/dL (65-115); Osmolality Calculated 289 mOsm/kg (285-295); Potassium 4.2 mmol/L (3.5-5.1); Sodium 140 mmol/L (136-145); Total Bilirubin 0.3 mg/dL (0.15-1.2); Total Protein 7.5 g/dL (6.6-8.7)
[2023-08-01 15:51] LABS: Troponin(5th) Baseline < 6 ng/L (0-15)
[2023-08-01 16:19] VITALS: BP 150/91; PULSE 68; RESP 16; O2SAT 99
--- NOTE | 2023-08-03 12:26 | DCPLANNER ---
Called [facility] and they will be contacting the patient to set up and appointment date and time.
== END 2023-08-01 16:20 | disposition home or self-care (01) ==
PROVIDERS: Emergency Provider Nurse Practitioner Family; PCP Physician Assistant
DX: I10 Essential (primary) hypertension (principal); Z79.02 Long term (current) use of antithrombotics/antiplatelets; Z79.82 Long term (current) use of aspirin; E78.5 Hyperlipidemia, unspecified; I25.110 Atherosclerotic heart disease of native coronary artery with unstable angina pectoris; Z72.0 Tobacco use
CPT/HCPCS: 71045; 80053; 84484; 85025; 93005; 99285